=== PATIENT | male | born 1950 | race Caucasian/White ===

== ENCOUNTER 2018-01-01 11:33 | Observation (INO) | payer MEDICARE, SELFPAY ==
[2017-12-18 14:19] VITALS: BP 132/98; PULSE 82; RESP 16; TEMP 37.1; O2SAT 96; BMI 24.0
--- NOTE | 2017-12-18 14:25 | SDCEKG_ITS ---
Test Reason : Blood Pressure : / mmHG Vent. Rate : 078 BPM Atrial Rate : 078 BPM P-R Int : 178 ms QRS Dur : 136 ms QT Int : 406 ms P-R-T Axes : 068 008 044 degrees QTc Int : 462 ms Normal sinus rhythm Possible Left atrial enlargement Right bundle branch block Abnormal ECG Confirmed by DARIAN HOBSON, DOMITILA ([id number]), editor in chief KENIA LOPEZ ([id number]) on 12/19/2017 10:24:16 AM Referred By: NILO Confirmed By:DOMITILA FARMER MD
[2017-12-18 15:07] LABS: Hematocrit 40.3 % (40-54); Hemoglobin 13.9 g/dl (13.0-16.5); Mean Corp Hgb Conc 34.5 g/gl (32-36); Mean Corpuscular Hgb 30.2 pg (27.0-32.0); Mean Corpuscular Volume 87.4 fL (80-94); Mean Platelet Vol. 9.4 fl (6.2-12.0); Platelet Count 262 K/mm3 (150-450); RBC Distribution Width CV 13.5 % (11.6-14.6); RBC Distribution Width SD 41.9 fl (35.1-43.9); Red Blood Count 4.61 M/mm3 (4.6-6.2); White Blood Count 4.2 K/mm3 (4.4-11.0)
[2017-12-18 15:08] LABS: Scan Indicated on CBC? Y/N NO
[2017-12-18 15:22] LABS: Anion Gap 9 (5-15); BUN 20 mg/dL (7-18); BUN/Creat Ratio 17.5 RATIO (10-20); Calcium,Total 8.7 mg/dL (8.5-10.1); Chloride 107 mmol/L (98-107); Creatinine, Serum 1.14 mg/dL (0.70-1.30); EST Glomerular Filtration Rate 68 mL/min (>60); Est Glom Filt Rate - Afr Amer 82 mL/min (>60); Estimated Creatinine Clearance 64.04 ml/min; Glucose 108 mg/dL (70-110); Potassium 4.1 mmol/L (3.5-5.1); Sodium Level 141 mmol/L (136-145)
--- NOTE | 2017-12-27 10:22 | CASEMGMT ---
Social Work Note Placed call to pt to discuss discharge planning. Introduced self and role at [facility]. The pt reports that he lives with his in a one-story home with two steps for entry and no HR. DME consists of a walker and cane, and pt does not anticipate additional DME needs. Plans to [facility] and will have transportation to and from appointments. JOSY CM to f/u with pt post-operatively. Plan: Outpatient therapy at [facility]. ERON Hernandez
[2018-01-01] VITALS (11 sets, daily range): BP systolic 100–154; BP diastolic 71–103; PULSE 77–88; RESP 16–20; TEMP 36.2–37; O2SAT 96–100; BMI 24.0
[2018-01-01] MEDS: Acetaminophen 500 MG Tablet 1000 MG PO ×3 (09:07→22:13)
[2018-01-01] MEDS: oxyCODONE HCl Cr 10 MG Tablet PO (09:07)
[2018-01-01] MEDS: Celecoxib 200 MG Capsule 400 MG PO (09:08)
[2018-01-01] MEDS: Cefazolin 2 GM in 0.9% Normal Saline 100 ML IV (10:19)
--- NOTE | 2018-01-01 11:37 | PCM.OPRPT ---
Report of Operation Date of Procedure: 01/01/18 Pre-Operative Diagnosis: Severe end-stage osteoarthritis left knee Post-Operative Diagnosis: Severe end-stage osteoarthritis left knee Surgery/Procedure Performed:: Total knee arthroplasty left Description of Surgical Findings:: Eburnation of bone, varus alignment, periarticular osteophytes consistent with tricompartmental osteoarthritis sheet rock layer: Manfred Dyer Type of Anesthesia:: Spinal Anesthesiologist: Jagjit Perry Special Medications: txa Specimen's removed: Bone and soft tissue Estimated Blood Loss (mL): 100 Fluids Replaced: See anesthesia report Description of Procedure: Implants: Nancie triathlon size 6 CR femur, 6 tibia, 35 x 9 mm patella all cemented with Simplex. 9 mm cruciate retaining articular surface Indications: Patient has severe end-stage osteoarthritis diagnosed via x-rays in the knee. They have failed all forms of conservative measures including activity modification, injections, anti-inflammatories, use of assistive device. The patient has pain that affects on a daily basis and prevents him from doing things that they enjoyed. They have elected to undergo the above procedure. The risks of the procedure were discussed at length and their questions were answered. Procedure description: The patient was greeted in the preoperative area. The left knee was then marked with a surgical marker. Patient was then taken to or [address]. They were administered a dose of antibiotics as well as tranexamic acid. Once adequate anesthesia was obtained and airway was secured to placed in supine position on the operating room table. A well-padded tourniquet was placed on the affected extremity. Leg was then prepped and draped in the usual sterile fashion from the knee down. Ioban was used on the skin. Surgical timeout was then performed and confirmed with all present. Six-inch Esmarch was used to examine the limb and tourniquet was then inflated to 250 mmHg. A longitudinal incision was then planned and carried out in the anterior aspect of the knee. The dissection was then carried the length of the incision the extensor mechanism was identified. Standard medial parapatellar arthrotomy was then performed revealing severe eburnation of bone and periarticular osteophytes. There is complete loss of cartilage especially in the medial compartment with varus alignment. Anterior fat pad was removed for visualization purposes and the anterior medial aspect of the tibia was skeletonized for exposure to the knee. The knee was then flexed the patella was inverted. Opening reamer was then used in the femur approximately 1 cm anterior to the attachment of the PCL. The intramedullary valgus wand was then placed in the femur set at 5? of valgus. The distal femoral cutting jig was then applied to the femur with anticipated resection of approximately 8 mm. This was then made with a oscillating saw. The sizing guide was then placed referencing off the posterior condyles and also reference off the epicondylar axis. This was measured and the appropriate size 4-in-1 cutting jig was then applied to the distal femur. Anterior posterior cuts were made followed by the anterior and posterior chamfer cuts. These bony pieces and fragments were removed and placed on the back table. Posterior retractor was then utilized and the tibia was subluxed anteriorly. Extramedullary tibial alignment jig was then applied to the tibia referencing off the medial one third of the tibial tubercle the anterior tibial spine the middle aspect of the tibiotalar joint. Also reference off patient's kob[place] slope. The tibial cutting jig was then pinned with anticipated resection of 2 mm off of the deficient medial tibial condyle. This cut was made with the oscillating saw. Once this was complete a laminar carton marker machine was utilized in both medial lateral meniscus were removed and a posterior capsular osteophytes were also removed. Posterior capsule release was performed in the posterior capsule as well as the geniculate arteries are treated with the aqua Jerica. The tibia was incised and the appropriate sized tibial tray was then pinned. The femoral trial was then placed and the knee was trialed. Full flexion-extension were easily achieved. The knee seemed to balance quite nicely. Any remaining osteophytes were removed at this time. Once this was complete the patella was everted and the Robert patella reaming device was then utilized the patella was then placed in the appropriate jig and reamer was then used to remove approximately 9 mm of the undersurface of the patella. A soft tissue remaining was in the way was removed and patella trial was then placed listed maintain excellent tracking using the no thumbs technique. The tibial tray at this point was punched to accommodate the fins of the final implant. At this point cement was mixed on the back table. The trial components were removed and the knee was copiously irrigated. Did use a cocktail of injection for postoperative pain control. The final components were then cemented in the standard fashion and excess cement was removed with cement removal tools and patellar clamp is placed in the patella. As the cement had cured in full extension tourniquet was deflated and hemostasis was perfect with Bovie cautery as well as the aqua Manus. Needle is once again trialed with different size polyethylenes to ensure the full range of motion was achieved as well as excellent balancing ligamentously was achieved. At this point the knee was copiously irrigated. Final implant was then inserted locking mechanism was engaged and confirmed to be locked. The arthrotomy was then closed with #1 Vicryl aggravate type fashion interrupted. Subcutaneous tissue was closed with 0 Vicryl and surgical zahida were placed in the skin. A occlusive silver impregnated dressing was then applied followed by well-padded sterile dressing secured with an Nilton wrap. The patient was taken to the PACU in stable condition. No complications known at this time. Postoperatively we will maintain standard total knee postoperative protocol. The use of the physician insurance account assistant was integral during this procedure. They assisted with positioning placement of the tourniquet retracting closure and placement of the dressing. The procedure would have been much more difficult without their expertise and assistance - Admit VTE Documentation VTE Present on Admission: Yes VTE Mechan Device Prophylaxis: SCD's, Thigh High ZAHIDA Hose VTE Pharm Prophylaxis ordered?: Yes
[2018-01-01] MEDS: Lactated Ringers 1,000 ML 125 ML IV (15:29)
[2018-01-01] MEDS: Cefazolin 1 GM/50 ML BAG IV (18:06)
[2018-01-01] MEDS: Aspirin 325 MG Tablet PO (18:06)
[2018-01-01] MEDS: Senna/Docusate Sodium 1 Tablet 2 TABLET PO (22:13)
[2018-01-01] MEDS: Lisinopril 10 MG Tablet PO (22:13)
[2018-01-02 02:27] VITALS: BP 127/79; PULSE 76; RESP 14; TEMP 36.6; O2SAT 100
[2018-01-02] MEDS: Cefazolin 1 GM/50 ML BAG IV (02:39)
[2018-01-02] MEDS: Acetaminophen 500 MG Tablet 1000 MG PO ×3 (05:34→22:02)
--- NOTE | 2018-01-02 07:45 | PCM.PN.ORT ---
Subjective: Patient sitting at bedside. Patient states pain is well-managed. Patient denies chest pain, shortness breath, calf pain, nausea vomiting. Has no other complaints. Objective: Dressing is clean dry intact. Vital signs labs within normal limits. Patient is neurovascular intact afebrile. Negative signs and symptoms of DVT. Negative respiratory distress. - Physical Exam General: Alert, Oriented x3 HEENT: PERRLA Oral: Moist Mucosa Neurological: Cranial nerves II-XII grossly intact Psych/Mental Status: Normal Affect, Alert and oriented to time, place, person, mood and affect Vital Signs Temp Pulse Resp BP Pulse Ox 97.8 F 76 14 127/79 H 100 01/02/18 02:27 01/02/18 02:27 01/02/18 02:27 01/02/18 02:27 01/02/18 02:27 Oxygen Delivery Method Room Air Weight: 76.2 kg Body Mass Index (BMI) 24.0 Intake and Output for Last 24 Hours 12/31/17 01/01/18 01/02/18 23:59 23:59 23:59 Intake Total 800 / 800 1259 / 1259 Balance 800 / 800 1259 / 1259 Assessment/Plan Status post right total knee arthroplasty 1. Continue all pain medications as prescribed 2. Begin physical therapy today, weight-bear as tolerated with walker. 3. Aspirin 325 mg 1 p.o. every 12 hours ?30 days for DVT prophylaxis 4. Encourage incentive spirometry 5. Possible discharge home tomorrow
--- NOTE | 2018-01-02 09:04 | PCA ---
pt in therapy
[2018-01-02] MEDS: Famotidine 20 MG Tablet PO (09:11)
[2018-01-02] MEDS: Senna/Docusate Sodium 1 Tablet 2 TABLET PO ×2 (09:11→22:02)
[2018-01-02] MEDS: Aspirin 325 MG Tablet PO ×2 (09:11→16:35)
[2018-01-02] MEDS: Lisinopril 20 MG Tablet PO (09:13)
[2018-01-02 09:21] VITALS: BP 122/84; PULSE 97; RESP 16; TEMP 36.5; O2SAT 97
[2018-01-02 11:12] VITALS: BP 127/92; PULSE 91; RESP 16; TEMP 36.9; O2SAT 100
[2018-01-02] MEDS: oxyCODONE 5 MG Tablet PO ×3 (12:05→23:58)
--- NOTE | 2018-01-02 14:02 | CASEMGMT ---
JOSY CABALLERO Face to Face with patient for initial transition planning/care coordination assessment. RN FEDERICO introduced self and role at [facility]. Patient sitting in chair, alert and oriented, friend at bedside. Patient willing to participate in assessment and is able to answer all questions appropriately. Care providers, pharmacy, and demographics verified. See link attached. Patient wishes to discharge home and has outpatient therapy set up at [facility] and family to provide transportation. Patient states he has no further needs or concerns at this time. CM to follow for discharge planning needs that may arise. Disposition Plan: Patient to discharge home with outpatient therapy, family support, and follow-up plans in place.
[2018-01-02 14:24] VITALS: BP 138/90; PULSE 95; RESP 16; TEMP 36.7; O2SAT 100
--- NOTE | 2018-01-02 15:05 | CASEMGMT ---
Medicare Outpatient Observation Notice completed with patient at this time. Patient voiced understanding and has no questions at this time. RN FEDERICO provided copy of signed notice to patient and filed original on chart. JOSY CABALLERO also provided Medicare Inpatient vs Outpatient information packet.
[2018-01-02 20:12] VITALS: BP 142/94; PULSE 102; RESP 16; TEMP 37.4; O2SAT 100
[2018-01-02] MEDS: Lisinopril 10 MG Tablet PO (22:02)
[2018-01-03 03:06] VITALS: BP 151/99; PULSE 99; RESP 16; TEMP 37.2; O2SAT 98
[2018-01-03] MEDS: 0.9% NaCl Peripheral Flush Adult/Peds IV ×2 (03:13→08:45)
[2018-01-03] MEDS: Acetaminophen 500 MG Tablet 1000 MG PO ×2 (06:18→13:55)
[2018-01-03] MEDS: oxyCODONE 5 MG Tablet PO ×2 (06:19→14:26)
[2018-01-03 08:32] VITALS: BP 107/76; PULSE 100; RESP 16; TEMP 36.9; O2SAT 98
[2018-01-03] MEDS: Senna/Docusate Sodium 1 Tablet 2 TABLET PO (08:52)
[2018-01-03] MEDS: Aspirin 325 MG Tablet PO ×2 (08:52→17:05)
[2018-01-03] MEDS: Famotidine 20 MG Tablet PO (08:52)
--- NOTE | 2018-01-03 12:05 | NURSING ---
Patient is requesting to hold MS contin until lunch- same completed.
--- NOTE | 2018-01-03 12:37 | PCM.PN.ORT ---
Subjective: Patient walking in his room, states pain is well-managed. No other complaints. Ready for discharge home Objective: Dressings clean dry intact. Vital signs labs all within normal limits. Patient is afebrile, neurovascular is otherwise intact. Negative signs and symptoms of DVT - Physical Exam General: Alert, Oriented x3, Cooperative HEENT: PERRLA Oral: Moist Mucosa Neurological: Cranial nerves II-XII grossly intact Psych/Mental Status: Normal Affect, Alert and oriented to time, place, person, mood and affect Vital Signs Temp Pulse Resp BP Pulse Ox 98.4 F 100 16 107/76 98 01/03/18 08:32 01/03/18 08:32 01/03/18 08:32 01/03/18 08:32 01/03/18 08:32 Oxygen Delivery Method Room Air Weight: 76.2 kg Body Mass Index (BMI) 24.0 Intake and Output for Last 24 Hours 01/01/18 01/02/18 01/03/18 23:59 23:59 23:59 Intake Total 800 / 800 1659 / 1659 1533 / 1533 Balance 800 / 800 1659 / 1659 1533 / 1533 Assessment/Plan Status post right total knee arthroplasty 1. Continue all pain medications as prescribed 2. Continue physical therapy at [facility], weight-bear as tolerated with walker. 3. Aspirin 325 mg 1 p.o. every 12 hours ?30 days for DVT prophylaxis 4. Follow-up as scheduled, see pink sheet 5. Discharge home today
--- NOTE | 2018-01-03 12:40 | PN.ORTHO_ITS ---
Subjective: Patient walking in his room, states pain is well-managed. No other complaints. Ready for discharge home Objective: Dressings clean dry intact. Vital signs labs all within normal limits. Patient is afebrile, neurovascular is otherwise intact. Negative signs and symptoms of DVT - Physical Exam General: Alert, Oriented x3, Cooperative HEENT: PERRLA Oral: Moist Mucosa Neurological: Cranial nerves II-XII grossly intact Psych/Mental Status: Normal Affect, Alert and oriented to time, place, person, mood and affect Vital Signs Temp Pulse Resp BP Pulse Ox 98.4 F 100 16 107/76 98 01/03/18 08:32 01/03/18 08:32 01/03/18 08:32 01/03/18 08:32 01/03/18 08:32 Oxygen Delivery Method Room Air Weight: 76.2 kg Body Mass Index (BMI) 24.0 Intake and Output for Last 24 Hours 01/01/18 01/02/18 01/03/18 23:59 23:59 23:59 Intake Total 800 / 800 1659 / 1659 1533 / 1533 Balance 800 / 800 1659 / 1659 1533 / 1533 Assessment/Plan Status post right total knee arthroplasty 1. Continue all pain medications as prescribed 2. Continue physical therapy at [facility], weight -bear as tolerated with walker. 3. Aspirin 325 mg 1 p.o. every 12 hours ?30 days for DVT prophylaxis 4. Follow-up as scheduled, see pink sheet 5. Discharge home today
[2018-01-03 12:48] VITALS: BP 135/95; PULSE 96; RESP 18; TEMP 36.8; O2SAT 100
--- NOTE | 2018-01-03 12:48 | DCINST_ITS ---
Discharge Diet: No Restrictions Discharge Activity: May Not Drive May shower in (days): 1 Ice area for (Minutes): 20 - each hour while awake. Weight Bearing Status: Weight bearing as tolerated Elevate: Operative Extremity Additional Activity Instructions:: Wear elastic stockings for 2 weeks after your surgery. Call your doctor if your incision/area has: Continuous Slow Oozing, Sudden Increased Bleeding, Increased Pain/ Swelling, Increased Redness, Foul Smelling Discharge Call your doctor if you observe: Fever of 101 or Higher, Coldness, Increased Pain - in extremity, Numbness or Tingling, Change in Color, Calf discomfort, Uncontrolled pain Change Dressing in (Days):: 0 - and daily as needed. Remove Dressing in (days):: 7 Cleanse incision/area with: Soap & Water Allergies/Adverse Reactions: Allergies No Known Allergies Allergy (Verified 12/18/17 14:00) Medications to take at Discharge Acyclovir [Zovirax] 200 mg PO YU 12/18/17 Calcium Carbonate [Calcium] 600 mg PO DAILY 12/18/17 Cholecalciferol (Vitamin D3) [Vitamin D3] 2,000 unit PO DAILY 12/18/17 Flaxseed Oil [[place]-3 Flaxseed Oil] 1,200 mg PO BID 12/18/17 Lisinopril [Prinivil] 20 mg PO DAILY 12/18/17 Lisinopril [Zestril] 10 mg PO QHS 12/18/17 Multivitamin [Multiple Vitamins] 1 each PO DAILY 12/18/17 Acetaminophen [Tylenol] 1,000 mg PO Q8 #90 tab 01/03/18 Aspirin 325 mg PO BIDCM #60 tab 01/03/18 MorphINE [Ms Contin] 15 mg PO BID 7 Days #14 tab 01/03/18 Oxycodone [Oxyir] 5 - 10 mg PO Q6H PRN PRN 7 Days #45 tab 01/03/18 The following prescriptions were given: Oxycodone [Oxyir] 5 - 10 mg PO Q6H PRN PRN 7 Days #45 tab PRN Reason: Mod-Severe Pain (4-10/10) Acetaminophen [Tylenol] 1,000 mg PO Q8 #90 tab Aspirin 325 mg PO BIDCM #60 tab MorphINE [Ms Contin] 15 mg PO BID 7 Days #14 tab Primary Care Physician: Ba Sarah MD [Primary Care Provider] - Please Follow Up With: Héctor Clemons, DO When: see pink sheet
--- NOTE | 2018-01-03 14:19 | NURSING ---
patient requesting for stool softner to be added to his prescriptions. Notified Khadar Hurst of [facility]. He states that it is ok to order colace for patient. This RN called [facility] pharmacy and notified them of same. Notified that stool softners are not typically covered by insurance and that they would bring up for patient to purchase OTC if he decided to. This RN relayed information to patient and his .
[2018-01-03] MEDS: Lisinopril 10 MG Tablet PO (17:04)
--- NOTE | 2018-01-03 18:24 | NURSING ---
Patient was to be discharged after lunch today. However, paper prescriptions were printed off and with patient's discharge instructions. Patient's upset that she was told that they would be automatically sent to pharmacy. Notified her that we would send prescriptions down for them- same completed. Uncertain about exact sequence of events after that time- but this RN was notified via JOSY Gonzáles that pharmacy called up and notified her that the MS contin needs to have prior authorization and that they did not have enough oxycontin to fill the entire prescription order. Notified that pharmacy was in contact with Gillian Barron. An hour or so later, no new information was given and this RN decided to call pharmacy to check on prescriptions. Notified by Adilene that prior autho. is still needed for prescriptions but that was told they could pay $13.88 now and then be reimbursed when prior authorization went through, which could be a day or so. Also, notified that was notified that entire prescription could not be filled of oxycodone and that only 15 pills could be given today and pharmacy would owe them 45. At the the time this RN was on phone with pharmacy, was furious and out at nurses' station and a phone call came in for this RN from Dr. Clemons's office. Nevaeh from Dr. Clemons's office states that the patient used his 's phone and called in to their office and was very nasty. She states that they are upset about the long wait to be discharged due to lack of planning with prior auth. and prescriptions being sent to pharmacy late. This RN notified Nevaeh that this RN was on the phone with [facility] pharmacy and that issues will be resolved. This RN went into patient's room and notified him that they could have MS contin if they paid the $13.88 and that if they did not want to do that then it could be a day or so for it go be completed. Also, notified that they could get 15 pills of the oxycontin order and then come back to pharmacy in next 2 days to have rest filled. Gave them the option to retrieve paper prescriptions and to go to different pharmacy. Patient realized that if they leave [place] they would still be dealing with the issue of prior authorization and decided to wait. Patient requested free tray for his - same completed. This RN called pharmacy and notified them of the same, understanding verified by Adilene in pharmacy. Prescription meds were brought up however, prescription for tylenol was not included with meds. Pharmacist ran downstairs and retrieved same. patient and his received meals and then were assisted with discharge.
== END 2018-01-03 18:58 | disposition home or self-care (01) ==
LOC: SDC 01-02 10:36
PROVIDERS: Admitting Provider Orthopaedic Surgery; Family Provider Family Medicine; PCP Family Medicine; Visit Provider Orthopaedic Surgery
PROC: (CPT 27447; principal; 2018-01-01 09:50)
DX: M17.12 Unilateral primary osteoarthritis, left knee (principal); Z79.899 Other long term (current) drug therapy; Z79.82 Long term (current) use of aspirin; I10 Essential (primary) hypertension; Z87.891 Personal history of nicotine dependence; I45.10 Unspecified right bundle-branch block; Z85.828 Personal history of other malignant neoplasm of skin
CPT/HCPCS: 01400; 27447; 64447; 80048; 85027; 87081; 93005; 96361; 96365; 96366; 96375; 97110; 97116; 97162; 97166; 97530; 97535; 99218; J7120; A4216; G0378; G0379; J2405

== ENCOUNTER 2019-01-25 10:00 | Day surgery (SDC) | payer MEDICARE, SELFPAY ==
[2019-01-17 14:27] VITALS: BMI 23.3
[2019-01-25] VITALS (7 sets, daily range): BP systolic 90–145; BP diastolic 65–93; PULSE 68–97; RESP 16–18; TEMP 36.4–36.6; O2SAT 95–100; BMI 23.4
--- NOTE | 2019-01-25 11:02 | OP.ENDO_ITS ---
01/25/2019 Ba Sarah Re : Colonoscopy procedure for Julian Sarah This procedure was performed on Friday, January 25, 2019. My impressions and recommendations are as follows: Impressions : - Diverticulosis in the sigmoid colon and in the descending colon. - Non-bleeding internal hemorrhoids. - The examination was otherwise normal on direct and retroflexion views. - No specimens collected. Recommendations : - Discharge patient to home. - Resume previous diet. - Continue present medications. - Repeat colonoscopy in 10 years for screening purposes. My findings are described in the full procedure note, which is enclosed. If I can be of further assistance, please feel free to contact me at Doctor phone number(s): , Work: . Sincerely, Marcelino Joshua MD 01/25/2019 11:02:02 AM This report has been signed electronically.
== END 2019-01-25 11:58 | disposition home or self-care (01) ==
LOC: EN 10:00 → AC 10:02
PROVIDERS: Family Provider Family Medicine; PCP Family Medicine; Referring Provider Surgery; Visit Provider Surgery
PROC: 0DJD8ZZ Inspection of Lower Intestinal Tract, Via Natural or Artificial Opening Endoscopic (ICD-10-PCS; CPT 45378; principal; 2019-01-25 10:55)
DX: K57.30 Diverticulosis of large intestine without perforation or abscess without bleeding (principal); K64.0 First degree hemorrhoids; I10 Essential (primary) hypertension; M19.90 Unspecified osteoarthritis, unspecified site; Z86.010 Personal history of colon polyps; Z87.891 Personal history of nicotine dependence; Z85.828 Personal history of other malignant neoplasm of skin; Z79.82 Long term (current) use of aspirin; Z79.899 Other long term (current) drug therapy
CPT/HCPCS: 45378; J7120

== ENCOUNTER 2019-04-04 05:51 | Day surgery (SDC) | payer MEDICARE, SELFPAY ==
[2019-01-25 10:14] VITALS: BMI 23.4
--- NOTE | 2019-04-04 06:06 | EKG12_ITS ---
Test Reason : PRE SURGERY Blood Pressure : / mmHG Vent. Rate : 072 BPM Atrial Rate : 072 BPM P-R Int : 186 ms QRS Dur : 140 ms QT Int : 420 ms P-R-T Axes : 072 002 033 degrees QTc Int : 459 ms Normal sinus rhythm Right bundle branch block Abnormal ECG When compared with ECG of 18-DEC-2017 14:29, No significant change was found Confirmed by SHARON CANADA ([id number]), editor city KENIA LOPEZ ([id number]) on 04/08/2019 4:56:04 PM Referred By: Marcelino Joshua Confirmed By:NEFTALI CANADA
[2019-04-04 06:16] VITALS: BP 148/99; PULSE 76; RESP 16; TEMP 36.8; O2SAT 99; BMI 23.3
--- NOTE | 2019-04-04 07:07 | PCM.HP.STD ---
Problem List (1) Left inguinal hernia Status: Acute History of Present Illness Date of Admission: 04/04/19 The patient is a 68 year old M here today for left inguinal hernia repair. Patient had a history of right anal hernia repair in the past. He has been experiencing pain in the left groin as well as bulging. 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 Past Medical History Medical History: Medical History (Last Reviewed 01/17/19 @ 14:27 by Sallie King) Arthritis M19.90 Hypertension I10 Allergies No Known Allergies Allergy (Verified 03/27/19 14:37) Home Medications: Ambulatory Orders Medication Instructions Recorded Cholecalciferol (Vitamin D3) 2,000 unit PO DAILY 12/18/17 [Vitamin D3] Flaxseed Oil [[place]-3 Flaxseed Oil] 1,200 mg PO BID 12/18/17 Lisinopril [Zestril] 10 mg PO QHS 12/18/17 Multivitamin [Multiple Vitamins] 1 ea PO DAILY 12/18/17 aspirin 325 mg tablet 81 mg PO QDAY tab 05/02/18 lisinopril 10 mg tablet 20 mg PO DAILY 05/02/18 Vitamin E 2,000 unit PO DAILY 01/22/19 Acyclovir [Zovirax] 200 mg PO 5X/DAY 03/27/19 Surgical History: Surgical History (Last Reviewed 01/17/19 @ 14:27 by Sallie King) History of arthroscopy of both knees Z98.890 History of hernia repair Z98.890, Z87.19 History of left knee surgery Z98.890 History of tonsillectomy Z90.89 Smoking Status: Former smoker Review of Systems Constitutional: Denies: Anorexia, Fever Eyes: Denies: Blurred vision HEENT: Denies: Difficulty Hearing, Difficulty Swallowing Respiratory: Denies: Cough, Shortness of Breath Gastrointestinal: Reports: Abdominal Pain. Denies: Diarrhea, Hematemesis, Nausea, Vomiting Genitourinary: Denies: Dysuria Musculoskeletal: Denies: Joint Tenderness Skin: Denies: Dryness, Jaundice Hematologic/ Lymphatic: Denies: Anemia VTE Information - Inpt Only VTE Present on Admission: No VTE Mechan Device Prophylaxis: SCD's Patient Problems: Active and Suspected Problems (Last Reviewed 01/17/19 @ 14:27 by Sallie King) Left inguinal hernia (Acute) - Physical Exam General: Alert, Oriented x3 HEENT: Atraumatic, PERRLA Neck: No JVD Lungs: Normal air movement Cardiovascular: Regular rate, Regular Rhythm Abdomen: Soft, Non Tender, Non-Distended, - - Bulging in the right groin Extremities: No clubbing Skin: No rashes Musculoskeletal: No Muscle Wasting Lymphatic: No Cervical, Supraclavicular, or Inguinal Adenopathy Neurological: Cranial nerves II-XII grossly intact Psych/Mental Status: Normal Affect Vital Signs Temp Pulse Resp BP Pulse Ox 98.2 F 76 16 148/99 H 99 04/04/19 06:16 04/04/19 06:16 04/04/19 06:16 04/04/19 06:16 04/04/19 06:16 Oxygen Delivery Method Room Air Weight: 162 lb 7.691 oz Body Mass Index (BMI) 23.3 Assessment/Plan All Active Problems (Last Reviewed 01/17/19 @ 14:27 by Sallie King) Left inguinal hernia (Acute) 68-year-old male left inguinal hernia 1. Patient has an obvious left inguinal hernia with bulging which is easily reducible. Patient also has laxity of the right inguinal ring which she had repaired as a child. I explained left inguinal hernia repair with robotic assistance to the patient in detail. I explained the risks including but not limited to bleeding, infection, chronic groin pain, recurrence of hernia, spermatic cord injury. The patient agrees to the risks. I also offered the patient right inguinal hernia repair if there is a right inguinal hernia present and the patient would like this fixed if present. Marcelino Joshua MD Pager: [facility] [address] [place] [address], [address] [place] [address] Office:
--- NOTE | 2019-04-04 07:10 | HP.PCM_ITS ---
Problem List (1) Left inguinal hernia Status: Acute History of Present Illness Date of Admission: 04/04/19 The patient is a 68 year old M here today for left inguinal hernia repair. Patient had a history of right anal hernia repair in the past. He has been experiencing pain in the left groin as well as bulging. 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 Past Medical History Medical History: Medical History (Last Reviewed 01/17/19 @ 14:27 by Sallie King) Arthritis M19.90 Hypertension I10 Allergies No Known Allergies Allergy (Verified 03/27/19 14:37) Home Medications: Ambulatory Orders Medication Instructions Recorded Cholecalciferol (Vitamin D3) 2,000 unit PO DAILY 12/18/17 [Vitamin D3] Flaxseed Oil [[place]-3 Flaxseed Oil] 1,200 mg PO BID 12/18/17 Lisinopril [Zestril] 10 mg PO QHS 12/18/17 Multivitamin [Multiple Vitamins] 1 ea PO DAILY 12/18/17 aspirin 325 mg tablet 81 mg PO QDAY tab 05/02/18 lisinopril 10 mg tablet 20 mg PO DAILY 05/02/18 Vitamin E 2,000 unit PO DAILY 01/22/19 Acyclovir [Zovirax] 200 mg PO 5X/DAY 03/27/19 Surgical History: Surgical History (Last Reviewed 01/17/19 @ 14:27 by Sallie King) History of arthroscopy of both knees Z98.890 History of hernia repair Z98.890, Z87.19 History of left knee surgery Z98.890 History of tonsillectomy Z90.89 Smoking Status: Former smoker Review of Systems Constitutional: Denies: Anorexia, Fever Eyes: Denies: Blurred vision HEENT: Denies: Difficulty Hearing, Difficulty Swallowing Respiratory: Denies: Cough, Shortness of Breath Gastrointestinal: Reports: Abdominal Pain. Denies: Diarrhea, Hematemesis, Nausea, Vomiting Genitourinary: Denies: Dysuria Musculoskeletal: Denies: Joint Tenderness Skin: Denies: Dryness, Jaundice Hematologic/ Lymphatic: Denies: Anemia VTE Information - Inpt Only VTE Present on Admission: No VTE Mechan Device Prophylaxis: SCD's Patient Problems: Active and Suspected Problems (Last Reviewed 01/17/19 @ 14:27 by Sallie King) Left inguinal hernia (Acute) - Physical Exam General: Alert, Oriented x3 HEENT: Atraumatic, PERRLA Neck: No JVD Lungs: Normal air movement Cardiovascular: Regular rate, Regular Rhythm Abdomen: Soft, Non Tender, Non-Distended, - - Bulging in the right groin Extremities: No clubbing Skin: No rashes Musculoskeletal: No Muscle Wasting Lymphatic: No Cervical, Supraclavicular, or Inguinal Adenopathy Neurological: Cranial nerves II-XII grossly intact Psych/Mental Status: Normal Affect Vital Signs Temp Pulse Resp BP Pulse Ox 98.2 F 76 16 148/99 H 99 04/04/19 06:16 04/04/19 06:16 04/04/19 06:16 04/04/19 06:16 04/04/19 06:16 Oxygen Delivery Method Room Air Weight: 162 lb 7.691 oz Body Mass Index (BMI) 23.3 Assessment/Plan All Active Problems (Last Reviewed 01/17/19 @ 14:27 by Sallie King) Left inguinal hernia (Acute) 68-year-old male left inguinal hernia 1. Patient has an obvious left inguinal hernia with bulging which is easily reducible. Patient also has laxity of the right inguinal ring which she had repaired as a child. I explained left inguinal hernia repair with robotic assistance to the patient in detail. I explained the risks including but not limited to bleeding, infection, chronic groin pain, recurrence of hernia, spermatic cord injury. The patient agrees to the risks. I also offered the patient right inguinal hernia repair if there is a right inguinal hernia present and the patient would like this fixed if present. Marcelino Joshua MD Pager: [facility] [address] [place] [address], [address] [place] [address] Office:
[2019-04-04] MEDS: Bupivacaine Mpf 0.5% 30 ML VIAL (07:16)
[2019-04-04] MEDS: Cefazolin 2 GM in 0.9% Normal Saline 100 ML IV (07:29)
[2019-04-04 08:44] VITALS: BP 118/81; BP 148/99; PULSE 68; RESP 14; TEMP 36.4; O2SAT 97
[2019-04-04 08:45] VITALS: BP 111/71; BP 148/99; PULSE 68; RESP 16; O2SAT 100
[2019-04-04 09:00] VITALS: BP 105/76; BP 148/99; PULSE 60; RESP 16; O2SAT 100
--- NOTE | 2019-04-04 09:08 | PCM.OPRPT ---
Problem List (1) Left inguinal hernia Status: Acute Report of Operation Date of Procedure: 04/04/19 Pre-Operative Diagnosis: Left inguinal hernia Post-Operative Diagnosis: Left inguinal hernia Surgery/Procedure Performed:: Robotic assisted laparoscopic left inguinal hernia repair with mesh Description of Procedure: Patient was brought back to the operating room and general anesthesia was induced. Abdomen was prepped and draped in the usual sterile fashion. An incision was made superior to the umbilicus and Melanie clamps were used to elevate the fascia and a Veress needle was placed into the abdomen and a drop test was performed. The abdomen was then insufflated to 15 mmHg. Next the camera port was placed through this incision and the camera was placed into the abdomen and there were no injuries from entry. Under direct visualization a right lower quadrant and left lower quadrant port were placed. Next the patient was placed in steep Trendelenburg and the robot was docked. Next an incision was made in the peritoneum superior to the hernia this was dissected down to the hernia sac was reached. The hernia sac was reduced into the abdomen and its adhesions were lysed. Once the hernia sac was reduced the dissection was carried further posterior. Once the dissection was completed a pro-supervisor production mesh was trimmed and placed into the left groin and unfolded. Next the peritoneum was reapproximated using a running 3-0V lock suture. There was good coverage of the mesh. Next the robot was undocked and removed and the air was allowed to desufflate from the abdomen in the scrotum. The skin incisions were then anesthetized and closed with interrupted 4-0 Monocryl's as well as bandages and Steri-Strips. Patient tolerated the procedure well was brought back in stable condition. Grafts/Implants Used: Pro-supervisor production mesh - Admit VTE Documentation VTE Present on Admission: No VTE Mechan Device Prophylaxis: SCD's
--- NOTE | 2019-04-04 09:11 | OP.PCM_ITS ---
Problem List (1) Left inguinal hernia Status: Acute Report of Operation Date of Procedure: 04/04/19 Pre-Operative Diagnosis: Left inguinal hernia Post-Operative Diagnosis: Left inguinal hernia Surgery/Procedure Performed:: Robotic assisted laparoscopic left inguinal hernia repair with mesh Description of Procedure: Patient was brought back to the operating room and general anesthesia was induced. Abdomen was prepped and draped in the usual sterile fashion. An incision was made superior to the umbilicus and Melanie clamps were used to elevate the fascia and a Veress needle was placed into the abdomen and a drop test was performed. The abdomen was then insufflated to 15 mmHg. Next the camera port was placed through this incision and the camera was placed into the abdomen and there were no injuries from entry. Under direct visualization a right lower quadrant and left lower quadrant port were placed. Next the patient was placed in steep Trendelenburg and the robot was docked. Next an incision was made in the peritoneum superior to the hernia this was dissected down to the hernia sac was reached. The hernia sac was reduced into the abdomen and its adhesions were lysed. Once the hernia sac was reduced the dissection was carried further posterior. Once the dissection was completed a pro-service tech/welder mesh was trimmed and placed into the left groin and unfolded. Next the peritoneum was reapproximated using a running 3-0V lock suture. There was good coverage of the mesh. Next the robot was undocked and removed and the air was allowed to desufflate from the abdomen in the scrotum. The skin incisions were then anesthetized and closed with interrupted 4-0 Monocryl's as well as bandages and Steri-Strips. Patient tolerated the procedure well was brought back in stable condition. Grafts/Implants Used: Pro-service tech/welder mesh - Admit VTE Documentation VTE Present on Admission: No VTE Mechan Device Prophylaxis: SCD's
--- NOTE | 2019-04-04 09:12 | DCINST_ITS ---
Discharge Diet: Light diet - advance as tolerated Discharge Activity: Return to Normal Activity, May Not Drive - for 2-3 days or while taking narcotic pain meds., May Shower - with the bandage in place 1-2 days after surgery. Lifting Restrictions: 20 pounds for 4 weeks. Additional Activity Instructions:: Climbing stairs is fine, walking is encouraged. Sitting in bed may be uncomfortable. Sitting up using your lateral muscles (sitting up sideways) is usually more comfortable. Do not drive, work heavy equipment of sign legal documents for 24 hours. If your hernia repair was an ingunial repair, you may have scrotal swelling, an ice pack and/or athletic support can provide more comfort. Pain medications may cause nausea, you should typically eat light foods as you take your pain medications. Pain medications may also cause constipation. If you have difficulty with this, discuss with your doctor. Call your doctor if your incision/area has: Continuous Slow Oozing, Sudden Increased Bleeding, Increased Pain/ Swelling, Increased Redness, Foul Smelling Discharge Call your doctor if you observe: Fever of 101 or Higher Suture Line Care: Avoid Pulling/Pushing, Avoid Pinching/Bending Change Dressing in (Days):: 3 - Leave steri-strips for 1 week. May protect with a guaze bandaid. Cleanse incision/area with: Soap & Water Allergies/Adverse Reactions: Allergies No Known Allergies Allergy (Verified 03/27/19 14:37) Medications to take at Discharge Cholecalciferol (Vitamin D3) [Vitamin D3] 2,000 unit PO DAILY 12/18/17 Flaxseed Oil [[place]-3 Flaxseed Oil] 1,200 mg PO BID 12/18/17 Lisinopril [Zestril] 10 mg PO QHS 12/18/17 Multivitamin [Multiple Vitamins] 1 ea PO DAILY 12/18/17 aspirin 325 mg tablet 81 mg PO QDAY tab 05/02/18 lisinopril 10 mg tablet 20 mg PO DAILY 05/02/18 Vitamin E 2,000 unit PO DAILY 01/22/19 Acyclovir [Zovirax] 200 mg PO 5X/DAY 03/27/19 Oxycodone HCl/Acetaminophen [Percocet 5/325] 1 - 2 tablet PO Q4H PRN PRN 7 Days #15 tablet 05/16/19 The following prescriptions were given: Oxycodone HCl/Acetaminophen [Percocet 5/325] 1 - 2 tablet PO Q4H PRN PRN 7 Days #15 tablet PRN Reason: Pain Primary Care Physician: Ba Sarah MD [Primary Care Provider] - Test Results: Test results from this visit will be discussed in further detail at your follow- up appointment, if applicable. Please Follow Up With: Marcelino Joshua MD When: Please call to schedule 2 week follow up appointment. [phone]
[2019-04-04 09:15] VITALS: BP 105/74; BP 148/99; PULSE 60; RESP 16; TEMP 36.4; O2SAT 94
[2019-04-04] MEDS: oxyCODONE 5 MG Tablet 10 MG PO (09:54)
[2019-04-04 11:54] VITALS: BP 139/92; BP 148/99; PULSE 66; RESP 16; TEMP 36.1; O2SAT 100
== END 2019-04-04 12:15 | disposition home or self-care (01) ==
LOC: SDC 05:52 → AC 05:54
PROVIDERS: Family Provider Family Medicine; PCP Family Medicine; Referring Provider Surgery; Visit Provider Surgery
PROC: 0YQ64ZZ Repair Left Inguinal Region, Percutaneous Endoscopic Approach (ICD-10-PCS; CPT 49650; principal; 2019-04-04 07:10)
DX: K40.90 Unilateral inguinal hernia, without obstruction or gangrene, not specified as recurrent (principal); I10 Essential (primary) hypertension; M19.90 Unspecified osteoarthritis, unspecified site; Z79.899 Other long term (current) drug therapy; Z87.891 Personal history of nicotine dependence; Z85.828 Personal history of other malignant neoplasm of skin
CPT/HCPCS: 49650; 93005; J7120; J2405

== ENCOUNTER → 2019-10-25 15:03 | Outpatient (CLI) | payer MEDICARE, SELFPAY ==
[2019-10-25 15:03] VITALS: BMI 22.5
--- NOTE | 2019-10-25 15:10 | RAD_ITS ---
STUDY: X-RAY - RIGHT KNEE REASON FOR EXAM: Male, 69 years old. Pain. Preop. TECHNIQUE: 4 view(s) of the knee. COMPARISON: None. FINDINGS: Normal visualized distal femur. Normal visualized proximal tibia and fibula. Normal proximal tibiofibular articulation. There is severe degenerative arthrosis of the medial femorotibial compartment with severe joint space narrowing. There is mild degenerative arthrosis of the lateral femorotibial compartment. There is moderate degenerative arthrosis of the patellofemoral articulation. There is a soft tissue prominence in the suprapatellar region suggesting a joint effusion. The soft tissue structures are unremarkable. RAD/Knee 4 or More Views IMPRESSION: Degenerative arthrosis. Joint effusion. Electronically Signed: Brooklyn Almeida MD at 16:05 EST Tel , Service support ,
== END ==
PROVIDERS: Family Provider Family Medicine; PCP Family Medicine; Referring Provider Orthopaedic Surgery; Visit Provider Orthopaedic Surgery
DX: M17.11 Unilateral primary osteoarthritis, right knee (principal)
CPT/HCPCS: 73564

== ENCOUNTER 2019-10-29 11:56 | Observation (INO) | payer MEDICARE, SELFPAY ==
[2019-09-25 09:40] VITALS: BMI 22.5
[2019-10-22 13:13] VITALS: BP 144/93; PULSE 79; RESP 16; TEMP 36.9; O2SAT 95; BMI 23.9
[2019-10-25 15:03] VITALS: BMI 22.5
--- NOTE | 2019-10-28 12:58 | PCM.HP.BLA ---
History and Physical Date of Admission: 10/29/19 Intake Vital Signs 09/25/19 Height 5 ft 10 in 09/25/19 Weight: 157 lb 09/25/19 Body Mass Index (BMI) 22.5 Intake Visit Reasons: right knee Is patient in pain?: Yes Allergies No Known Allergies Allergy (Verified 04/19/19 13:09) Medications Cholecalciferol (Vitamin D3) [Vitamin D3] 2,000 unit PO DAILY 12/18/17 [History Confirmed 09/25/19] Flaxseed Oil [[place]-3 Flaxseed Oil] 1,200 mg PO BID 12/18/17 [History Confirmed 09/25/19] Lisinopril [Zestril] 10 mg PO QHS 12/18/17 [History Confirmed 09/25/19] Multivitamin [Multiple Vitamins] 1 ea PO DAILY 12/18/17 [History Confirmed 09/25/19] aspirin 325 mg tablet 81 mg PO QDAY tab 05/02/18 [History Confirmed 09/25/19] lisinopril 10 mg tablet 20 mg PO DAILY 05/02/18 [History Confirmed 09/25/19] Vitamin E 2,000 unit PO DAILY 01/22/19 [History Confirmed 09/25/19] Acyclovir [Zovirax] 200 mg PO 5X/DAY 03/27/19 [History Confirmed 04/19/19] [facility] Medical History (Updated 04/04/19 @ 09:11 by Marcelino Joshua MD) Arthritis (Acute) Hypertension (Chronic) Surgical History (Updated 04/19/19 @ 13:09 by Ligia San) History of arthroscopy of both knees (Acute) History of hernia repair (Acute) History of left knee surgery (Acute) History of tonsillectomy (Acute) S/P inguinal hernia repair (Acute) Family History (Updated 05/02/18 @ 10:14 by Sallie King) Father Arthritis Hypertension Skin cancer Brother Arthritis Hypertension Skin cancer Mother Breast cancer Hypertension Social History (Updated 09/25/19 @ 16:32 by Guanaco Smith DO) Smoking Status: Former smoker alcohol intake: current alcohol intake frequency: a few times a month substance use type: does not use HPI right knee: Details: Parts of this documentation were recorded by a scribe, this documentation accurately reflects the service provided and the decisions made by , uGanaco Smith DO 09/25/19 0940. LETICIA MOORE is a 68 year old M here today for right knee pain that began over a year ago. 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 His pain is primarily medial, he also has non painful clicking. Patient denies regular exercise and Denies numbness, tingling or other associated symptoms. Denies any instability or swelling. Denies any steroid injections and states he was told they would not be beneficial to him. Denies any bracing. Patient states ascending stairs greater than descending. H/o of left TKA 12/2017. ROS Musc Reports as per HPI, Denies abnormal walking, Reports joint pain Skin/Breast Reports system reviewed and no additional complaints, except as docu, Reports as per HPI Neuro Yes as per HPI, No abnormal walking Ortho Exam Right Knee Skin/Wound: No erythema, No ecchymosis, No swelling Homans Sign: No Knee ROM: Yes ROM-Extension -20 to 0, Yes ROM-Flexion 0-140 Examination: Yes Med jt line tenderness, No Lat jt line tenderness, Yes Pain with flexion Stability: NML: Anterior Drawer, NML: Posterior Drawer, NML: Valgus 30, NML: Varus 30, 2+: Varus 0 (fixed ) Patella Translation: 1 Apprehension with Lateral Translation: No Patella Grind: No KNEE: neuro intact, distal pulse good, Left Knee Patella Translation: 1 Supplemental Info X-ray on disc of 10/01/2018: Severe DJD varus deformity Assessment & Plan Problems 1. Primary osteoarthritis of right knee M17.11 Plan Explained that due to the severe OA noted he is a candidate for a TKA. Reviewed traditional procedure vs robotic assistance as well as the post op restrictions. Risks, benefits and alternatives of surgery reviewed including but not limited to bleeding, infection, nerve, artery and/or tissue damage, fracture, VTE, mechanical feel of the knee, continued pain, stiffness and expected post-operative course. Follow up post op or sooner if pain, swelling, numbness or associated symptoms, or concerns develop. All questions answered. Patient in agreement of plan. Coding Level of Care Code Off vis,new,level 3 Diagnoses Primary osteoarthritis of right knee M17.11 ??Osteoarthritis type: primary I have re-examined the patient. There are no clinical changes since date of exam
[2019-10-29] VITALS (10 sets, daily range): BP systolic 112–155; BP diastolic 77–105; PULSE 70–91; RESP 14–18; TEMP 36.4–36.8; O2SAT 98–100; BMI 23.9
[2019-10-29 09:35] LABS: Bedside Glucose 62 mg/dL (70-110)
[2019-10-29] MEDS: Magnesium Sulfate 4gm/100mL 4 GM/100 ML IV.SOLN. IV (09:42)
[2019-10-29] MEDS: Gabapentin 600 MG Tablet PO (09:43)
[2019-10-29] MEDS: Acetaminophen 500 MG Tablet 1000 MG PO ×2 (09:43→21:27)
[2019-10-29] MEDS: Celecoxib 200 MG Capsule 400 MG PO (09:43)
[2019-10-29] MEDS: Scopolamine 1mg/72hr Patch 1 PATCH TRANSDERM. (09:44)
[2019-10-29] MEDS: Lactated Ringers 1,000 ML 100 ML IV (10:00)
[2019-10-29] MEDS: dexAMETHasone 10 MG/ML Vial IV (10:25)
[2019-10-29] MEDS: Cefazolin 2 GM in 0.9% Normal Saline 100 ML IV (10:29)
[2019-10-29] MEDS: Lactated Ringers 1,000 ML 125 ML IV ×4 (11:31→21:20)
[2019-10-29] MEDS: Betamethasone/Betamethasone 30 MG/5 ML Vial (11:39)
[2019-10-29] MEDS: Bupivacaine 0.5% PF 10 ML VIAL (11:39)
[2019-10-29] MEDS: Epinephrine (1 mg/ml) 1 MG/ML VIAL (11:39)
[2019-10-29] MEDS: 0.9% Normal Saline (Pres. free 10 ML Vial (11:40)
--- NOTE | 2019-10-29 11:57 | RAD_ITS ---
STUDY: X-RAY - RIGHT KNEE REASON FOR EXAM: Male, 69 years old. Total knee replacement. TECHNIQUE: 2 view(s) of the knee. COMPARISON: Comparison is made with prior examination dated October 25, 2019. FINDINGS: The patient is status post total knee replacement. Postoperative soft tissue changes. RAD/Knee 1 or 2 Views IMPRESSION: The patient is status post total knee replacement. There is good alignment. Postoperative soft tissue changes. Electronically Signed: Tamir Palma, at 12:58 EST , Service support ,
--- NOTE | 2019-10-29 12:03 | OP.PCM_ITS ---
Report of Operation Date of Procedure: 10/29/19 Description of Surgical Findings:: Preoperative diagnosis: Right knee DJD Postoperative diagnosis: Same Procedure: Right total knee arthroplasty Implant: [place] triathlon cemented right femoral component size 6, cemented tibial baseplate size 5, cemented asymmetric patella size 38, polyethylene X3 size 9 CS Anesthesia: Spinal with adductor canal block Tourniquet time: 66 minutes at 300 mmHg Complications: None Condition: Stable to PACU Estimated blood loss: 25 cc Indication for procedure: This is a 69-year-old male with long standing degenerative joint disease of the knee who has failed conservative treatment and wished to proceed with elective total knee arthroplasty. Risk benefits and alternatives were reviewed including; risk of bleeding, infection, nerve artery and tissue damage, continued pain, postoperative stiffness, venous thromboembolism, need for postoperative rehabilitation, mechanical feel to the knee, and expected postoperative course. Procedure: The patient was met in the preoperative holding area. The operative extremity was identified by both patient and physician and was marked. Patient was met by anesthesia. An adductor canal block was placed by anesthesia postoperatively the patient was brought back to the operating room on a wheeled cart and transferred to the operating table in the supine position. Anesthesia was started. A well-padded tourniquet was placed on the operative extremity. The patient was prepped and draped in the usual sterile fashion. A timeout was called to ensure the proper patient procedure and extremity were being contemplated. An Esmarch was used to exsanguinate the extremity. The tour niquet was inflated. A 10 blade scalpel was used to make a midline incision down through the skin and subcutaneous tissue. Skin retractors placed. Bovie was used to perform meticulous hemostasis. full-thickness flaps were elevated medial and lateral along the joint capsule. A deep blade scalpel was used to perform a medial parapatellar arthrotomy. The knee was brought to full extension. A Bovie was used to release the soft tissues off the most proximal aspect of the medial tibial plateau a three-quarter inch curved osteotome was also used for this process. The infrapatellar fat pad was excised. The fat pad was excised partially anterior lateral portion the anterior medial was elevated from the femur. the patella was everted. The knee was brought into flexion. An intramedullary drill was used followed by flexible intramedullary guide zoey. The distal femoral cutting block was placed and set to remove 12 mm of bone secondary to severe flexion contracture and 5 degrees of valgus. The block was secured with pins and an oscillating saw was used to complete the distal femoral cut. During this, and all bony cuts retractors were used to protect the collateral ligaments. At this point a femoral sizer was used to measure the AP dimension of the femur. The sizer block was pinned parallel to the epicondylar access for external rotation. The sizing block was removed and the ap propriately sized 4-in-1 cutting block was placed over the previously made pinholes. It was checked with an zeus wing and the block was secured with pins. An oscillating saw was used to complete the anterior cut followed by the posterior cut followed by the posterior chamfer cut followed by the anterior chamfer cut. The block was removed as well as the fragments. A ronguer was used to remove excess osteophytes. The medial and lateral meniscus were excised as well as the ACL. At this point a PCL retractor was placed and an intramedullary drill was passed down the tibial canal followed by a solid intramedullary guide zoey. The tibial cutting block was attached and set to remove 9 mm of bone from the high side. This was checked with an external alignment drop zoey for slope and tilt. It was pinned into place. An oscillating saw was used to complete the tibial plateau cut and the block was removed. A large osteotome was used to elevate the fragment and a Madhuri and a Bovie were used to free the fragment from the surrounding soft tissue. A rongeur was once again used to remove osteophytes a lamina auto design checker was used to evaluate the posterior capsular structures. A three-quarter inch curved osteotome was used to remove posterior osteophytes. A spacer block was inserted in both extension and flexion to ensure adequate spacing. Trials were inserted full extension and flexion were achieved in varus and valgus stability throughout range of motion were seen, balancing techniques were performed. At this point the attention was turned towards the patella. A caliper was used to ensure sufficient bone stock to remove 10 mm of bone. A reamer was used to perform this task. Lug holes were made for the appropriate-sized patella. The patella trial was inserted and there was good patellar tracking with knee range of motion. The tibial baseplate was allowed to float into rotation and was marked on the tibial plateau with a Bovie. Lug holes were made in the femur and trials were removed. The tibial baseplate was then sized and its preparation was completed with a fin punch. The knee was thoroughly irrigated. A posterior capsular injection was performed with our standard cocktail. The knee was brought into flexion and irrigated again. The tibial baseplate was cemented. Excess cement was removed with curettes. The polyethylene component was inserted. The femoral component was cemented. The knee was brought into full extension and placed on a bump. The patellar component was cemented. At this point a Betadine rinse was placed and thoroughly irrigated after a few minutes. This was followed by an Iricept rinse which was allowed to sit for 1 minute and then thoroughly irrigated.At this point all gloves were changed. The knee was thoroughly irrigated the joint capsule was closed with #1 Ethibond. Tourniquet was let down followed by 0 Vicryl and 2-0 Vicryl in the subcutaneous tissues. followed by running 3-0 Monocryl Steri-Strips. Dressing was applied in the form of Mepilex silver dressing web roll and an [place] wrap from the foot to the groin. The patient tolerated the procedure well, all counts were correct patient was brought back to the PACU in stable condition.
[2019-10-29] MEDS: Cefazolin 1 GM/50 ML BAG IV ×2 (14:37→21:20)
[2019-10-29] MEDS: oxyCODONE 5 MG Tablet PO (15:38)
[2019-10-29] MEDS: Lisinopril 10 MG Tablet PO (21:20)
[2019-10-29] MEDS: Senna/Docusate Sodium 1 Tablet 2 TABLET PO (21:26)
[2019-10-30 03:00] VITALS: BP 164/96; PULSE 79; RESP 16; TEMP 36.9; O2SAT 98
[2019-10-30] MEDS: Cefazolin 1 GM/50 ML BAG IV (05:20)
[2019-10-30] MEDS: Acetaminophen 500 MG Tablet 1000 MG PO ×2 (06:15→14:11)
[2019-10-30] MEDS: APIXABAN 2.5 MG TABLET PO (06:15)
[2019-10-30 06:19] LABS: Anion Gap 6 (5-15); BUN 18 mg/dL (7-18); BUN/Creat Ratio 14.2 RATIO (10-20); Calcium,Total 8.4 mg/dL (8.5-10.1); Chloride 108 mmol/L (98-107); Creatinine, Serum 1.27 mg/dL (0.70-1.30); EST Glomerular Filtration Rate 60 mL/min (>60); Est Glom Filt Rate - Afr Amer 72 mL/min (>60); Estimated Creatinine Clearance 55.88 ml/min; Glucose 120 mg/dL (74-106); Potassium 4.3 mmol/L (3.5-5.1); Sodium Level 138 mmol/L (136-145)
[2019-10-30 06:20] LABS: Mean Corp Hgb Conc 33.3 g/dL (32-36); Mean Corpuscular Volume 89.9 fL (80-94); Mean Platelet Vol. 9.5 fl (6.2-12.0); Platelet Count 281 K/mm3 (150-450); RBC Distribution Width CV 13.3 % (11.6-14.6); RBC Distribution Width SD 43.8 fl (35.1-43.9); Red Blood Count 4.34 M/mm3 (4.6-6.2); White Blood Count 10.3 K/mm3 (4.4-11.0)
[2019-10-30] MEDS: Lisinopril 10 MG Tablet 20 MG PO (08:43)
[2019-10-30] MEDS: Multivitamins,Therapeutic Tablet 1 TABLET PO (08:43)
[2019-10-30] MEDS: oxyCODONE 5 MG Tablet PO (08:43)
[2019-10-30 08:46] VITALS: BP 127/86; PULSE 90; RESP 18; TEMP 36.5; O2SAT 97
[2019-10-30] MEDS: Senna/Docusate Sodium 1 Tablet 2 TABLET PO (08:50)
--- NOTE | 2019-10-30 10:15 | CASEMGMT ---
RN FEDER[place] Face to Face with patient for initial transition planning/care coordination assessment. RN CM introduced self and role at [facility]. Patient sitting in chair, alert and oriented. Patient willing to participate in assessment and is able to answer all questions appropriately. Care providers, pharmacy, and demographics verified. Patient wishes to discharge home and is setup with [facility] for outpatient therapy. Patient states he has no further needs or concerns at this time. CM to follow for discharge planning needs that may arise. PCP: Tyrel Specialists: Luis Ayala Pharmacy: [facility] Retail Insurance: [facility] Prescription Benefit: yes Living Will/HPOA: none LNOK: Living Arrangements: Patient lives with in 2 story home with bed and bath on main level. Patient independent at home prior to surgery. Transportation: DME/HHC: Patient has shower chair, raised toilet, cane, walker at home. Patient is setup for outpatient therapy at [facility] on Monday. Disposition Plan: Patient to discharge home with family support and follow-up plans in place. Ayse CRUZ, RN, CM
--- NOTE | 2019-10-30 12:29 | PCM.DC.ORTHO ---
Discharge Diet: No Restrictions Weight Bearing Status: Weight bearing as tolerated Call your doctor if you observe: Shortness of breath, Chest pain Additional Instructions: Ice and elevate next week while not ambulating. Encourage ambulation weightbearing as tolerated. Encourage FULL knee extension and flexion 1 time EVERY time you get up and down and MULTIPLE times per day. Begin showering postop day #3. Remove the dressing prior to shower gently wash with warm water and antibacterial soap then pat dry place ABD pad and ZAHIDA hose over top. This is to be done daily. do not submerge for 3 weeks. If not showering daily must clean incision and change dressing daily. Do not allow animals near incision keep clean. Follow anticoagulation recommendations. Start physical therapy as directed in the hospital. call Dr. Smith with any concerns. Allergies/Adverse Reactions: Allergies No Known Allergies Allergy (Verified 10/29/19 09:34) Medications to take at Discharge Cholecalciferol (Vitamin D3) [Vitamin D3] 2,000 unit PO DAILY 12/18/17 Flaxseed Oil [[place]-3 Flaxseed Oil] 750 mg PO DAILY 12/18/17 Lisinopril [Zestril] 10 mg PO QHS 12/18/17 Multivitamin [Multiple Vitamins] 1 ea PO DAILY 12/18/17 lisinopril 10 mg tablet 20 mg PO 0900 05/02/18 Aspirin E.C. [Ecotrin] 81 mg PO DAILY@0800 10/22/19 Calcium Carbonate/Vitamin D3 [Calcium 500-Vit D3 600 Caplet] 1 ea PO DAILY 10/22/19 Acetaminophen [Tylenol] 1,000 mg PO Q6H PRN #100 tab 10/30/19 Apixaban [Eliquis] 2.5 mg PO BID #28 tab 10/30/19 Oxycodone [Oxyir] 5 - 10 mg PO Q4H PRN PRN #60 tablet 10/30/19 The following prescriptions were given: Apixaban [Eliquis] 2.5 mg PO BID #28 tab Transmission Status: Pending to [facility] Oxycodone [Oxyir] 5 - 10 mg PO Q4H PRN PRN #60 tablet PRN Reason: Pain Score 4-10/10 Transmission Status: Sent to [facility] Acetaminophen [Tylenol] 1,000 mg PO Q6H PRN #100 tab Transmission Status: Pending to [facility] Primary Care Physician: Ba Sarah MD [Primary Care Provider] - Test Results: Test results from this visit will be discussed in further detail at your follow-up appointment, if applicable. Please Follow Up With: Guanaco Smith DO - 2 weeks
--- NOTE | 2019-10-30 12:31 | DS.PCM_ITS ---
Discharge Date and Diagnosis Date of Admission: 10/29/19 Date of Discharge: 10/30/19 Hospital Course and Treatment Summary of Care Provided: The patient is a 69 year old M the patient has with long-standing history of knee DJD and has failed conservative treatment. Patient wished to undergo elective total knee arthroplasty and underwent the aforementioned procedure on the admission date without complications. patient did receive pre-and postoperative antibiotics which were discontinued within 23 hours postoperatively. patient did receive [a spinal anesthesia and a adductor canal block ]and the pain was controlled postoperatively with p.o. and IV pain medicat ion. There was minimal intraoperative blood loss he did [receive 2 g of tranexamic acid ]and his vital signs and labs were stable postoperatively and patient [did not require a blood transfusion]. patient was seen by physical therapy and did progress with his ambulation. Postoperatively was started on both mechanical and chemical DVT prophylaxis for which patient will continue [ Eliquis 2.5 mg twice daily] for 2 additional weeks post hospital discharge. Patient [place] wrap was removed in the morning of postop day 1 without any concerning signs. Silverlon dressing will stay on for 72 hours postoperatively at which time patient will begin showering on postop day #3 with daily dressing changes. Encouraged patient to achieve full range of motion as soon as possible, Patient will sart outpatient physical therapy and will follow-up in the office in 2 weeks for wound check. There is no intrahospital complications . Subjective: Alert and oriented no acute distress denies chest pain shortness of breath fevers chills nausea vomiting - Physical Exam Vitals/I&O's: Vital Signs Temp Pulse Resp BP Pulse Ox 97.7 F L 90 18 127/86 H 97 10/30/19 08:46 10/30/19 08:46 10/30/19 08:46 10/30/19 08:46 10/30/19 08:46 Oxygen Flow Rate (L/min) 6 Oxygen Delivery Method Room Air Weight: 166 lb 10.711 oz Body Mass Index (BMI) 23.9 Intake and Output for Last 24 Hours 10/28/19 10/29/19 10/30/19 23:59 23:59 23:59 Intake Total 4586.25 / 4936.25 1700 / 1700 Output Total 800 / 1100 1050 / 1050 Balance 3786.25 / 3836.25 650 / 650 General: Alert, Oriented x3, Cooperative, No apparent distress Extremities: - - Dressing clean dry intact neurovascular intact compartments soft and compressible Laboratory Results 10/30/19 05:44: WBC 10.3, RBC 4.34 L, Hgb 13.0, Hct 39.0 L, MCV 89.9, MCH 30.0, MCHC 33.3, RDW Std Deviation 43.8, RDW Coeff of Vicki 13.3, Plt Count 281, MPV 9.5 10/30/19 05:44: Sodium 138, Potassium 4.3, Chloride 108 H, Carbon Dioxide 24.0, Anion Gap 6, BUN 18, Creatinine 1.27, Estim Creat Clear Calc 55.88, Est GFR (MDRD) Af Amer 72, Est GFR (MDRD) Non-Af 60, BUN/Creatinine Ratio 14.2, Glucose 120 H, Calcium 8.4 L Current Medications Acetaminophen (Tylenol) 1,000 mg PO Q8 [facility] Last Admin: 10/30/19 06:15 Dose: 1,000 mg Documented by: Apixaban (Eliquis) 2.5 mg PO BID [facility] Last Admin: 10/30/19 06:15 Dose: 2.5 mg Documented by: Hydromorphone HCl (Dilaudid Inj) 0.5 mg IV Q2H PRN PRN PRN Reason: Pain Score 6-10/10 Insulin Human Lispro (Humalog Kwikpen (Bkc)) 1 - 6 unit SC Q4H PRN PRN; Protocol PRN Reason: BG>/= 180, SEE PROTOCOL Ketorolac Tromethamine (Toradol) 15 mg IV Q6H PRN PRN PRN Reason: Pain Score 1-5/10 Stop: 10/31/19 11:58 Lisinopril (Zestril) 20 mg PO 0900 [facility] Last Admin: 10/30/19 08:43 Dose: 20 mg Documented by: Lisinopril (Zestril) 10 mg PO QHS [facility] Last Admin: 10/29/19 21:20 Dose: 10 mg Documented by: Multivitamins (Multivitamin) 1 tablet PO DAILY@0800 [facility] Last Admin: 10/30/19 08:43 Dose: 1 tablet Documented by: Ondansetron HCl (Zofran) 4 mg IV Q6H PRN PRN PRN Reason: NAUSEA Oxycodone HCl (Oxyir) 5 - 10 mg PO Q4H PRN PRN PRN Reason: Pain Score 4-10/10 Last Admin: 10/30/19 08:43 Dose: 5 mg Documented by: Senna/Docusate Sodium (Senokot-S, [place]-Colace) 2 tablet PO BID [facility] Last Admin: 10/30/19 08:50 Dose: 2 tablet Documented by: Sodium Chloride () 10 - 40 ml IV UD PRN PRN Reason: SALINE FLUSH Discharge Diet: No Restrictions Weight Bearing Status: Weight bearing as tolerated Call your doctor if you observe: Shortness of breath, Chest pain Home Medications: Medications to take at Discharge Cholecalciferol (Vitamin D3) [Vitamin D3] 2,000 unit PO DAILY 12/18/17 Flaxseed Oil [[place]-3 Flaxseed Oil] 750 mg PO DAILY 12/18/17 Lisinopril [Zestril] 10 mg PO QHS 12/18/17 Multivitamin [Multiple Vitamins] 1 ea PO DAILY 12/18/17 lisinopril 10 mg tablet 20 mg PO 0900 05/02/18 Aspirin E.C. [Ecotrin] 81 mg PO DAILY@0800 10/22/19 Calcium Carbonate/Vitamin D3 [Calcium 500-Vit D3 600 Caplet] 1 ea PO DAILY 10/22/19 Acetaminophen [Tylenol] 1,000 mg PO Q6H PRN #100 tab 10/30/19 Apixaban [Eliquis] 2.5 mg PO BID #28 tab 10/30/19 Oxycodone [Oxyir] 5 - 10 mg PO Q4H PRN PRN #60 tablet 10/30/19 Following Prescrptions Were Given to Patient: Apixaban [Eliquis] 2.5 mg PO BID #28 tab Transmission Status: Pending to [facility] Oxycodone [Oxyir] 5 - 10 mg PO Q4H PRN PRN #60 tablet PRN Reason: Pain Score 4-10/10 Transmission Status: Sent to [facility] Acetaminophen [Tylenol] 1,000 mg PO Q6H PRN #100 tab Transmission Status: Pending to [facility] Primary Care Physician: Ba Sarah MD [Primary Care Provider] - Please Follow Up With: Borruso,Guanaco, DO - 2 weeks Additional Instructions: Ice and elevate next week while not ambulating. Encourage ambulation weightbearing as tolerated. Encourage FULL knee extension and flexion 1 time EVERY time you get up and down and MULTIPLE times per day. Begin showering postop day #3. Remove the dressing prior to shower gently wash with warm water and antibacterial soap then pat dry place ABD pad and ZAHIDA hose over top. This is to be done daily. do not submerge for 3 weeks. If not showering daily must clean incision and change dressing daily. Do not allow animals near incision keep clean. Follow anticoagulation recommendations. Start physical therapy as directed in the hospital. call Dr. Smith with any concerns. Medical Necessity - Tobacco Use Smoking Status: Former smoker Tobacco Use: Non-smoker Meaningful Use Info Meaningful Use Diagnoses (Choose all that apply): None applicable
--- NOTE | 2019-10-30 13:45 | CASEMGMT ---
JOSY CABALLERO completed ANG form with patient. Patient had no questions or concern. Form signed by patient, copy provided to patient. JOSY CABALLERO placed original on chart.
[2019-10-30 14:17] VITALS: BP 150/94; PULSE 73; RESP 18; TEMP 36.7; O2SAT 98
== END 2019-10-30 14:26 | disposition home or self-care (01) ==
LOC: SDC 12:15 → MS3 10-30 07:47
PROVIDERS: Admitting Provider Orthopaedic Surgery; Family Provider Family Medicine; PCP Family Medicine; Referring Provider Orthopaedic Surgery; Visit Provider Orthopaedic Surgery
PROC: (CPT 27447; principal; 2019-10-29 10:45)
DX: M17.11 Unilateral primary osteoarthritis, right knee (principal); I10 Essential (primary) hypertension; Z79.899 Other long term (current) drug therapy; Z79.82 Long term (current) use of aspirin; Z87.891 Personal history of nicotine dependence
CPT/HCPCS: 27447; 64447; 36415; 73560; 80048; 82962; 85027; 87081; 96361; 96365; 96366; 97110; 97162; 97166; 97530; 99218; 99251; C1776; J7120; G0378; G0379; G0463; J0702; J3490

== ENCOUNTER 2019-12-24 10:13 | Day surgery (SDC) | payer MEDICARE, SELFPAY ==
--- NOTE | 2019-12-18 04:02 | HP_ITS ---
Intake Intake Visit Reasons: LEFT KNEE Is patient in pain?: No Allergies No Known Allergies Allergy (Verified 10/29/19 09:34) Medications Cholecalciferol (Vitamin D3) [Vitamin D3] 2,000 unit PO DAILY 12/18/17 [History Confirmed 12/18/19] Flaxseed Oil [[place]-3 Flaxseed Oil] 750 mg PO DAILY 12/18/17 [History Confirmed 12/18/19] Lisinopril [Zestril] 10 mg PO QHS 12/18/17 [History Confirmed 12/18/19] Multivitamin [Multiple Vitamins] 1 ea PO DAILY 12/18/17 [History Confirmed 12/18/19] lisinopril 10 mg tablet 20 mg PO 0900 05/02/18 [History Confirmed 12/18/19] Aspirin E.C. [Ecotrin] 81 mg PO DAILY@0800 10/22/19 [History Confirmed 12/18/19] Calcium Carbonate/Vitamin D3 [Calcium 500-Vit D3 600 Caplet] 1 ea PO DAILY 10/22/19 [History Confirmed 12/18/19] Acetaminophen [Tylenol] 1,000 mg PO Q6H PRN #100 tab 10/30/19 [Rx Confirmed 12/18/19] Oxycodone [Oxyir] 5 - 10 mg PO Q4H PRN PRN #60 tab 10/30/19 [Rx Confirmed 12/18/19] oxycodone 5 mg capsule 5 mg PO Q6H PRN #56 cap 11/11/19 [Rx Confirmed 12/18/19] [facility] Medical History (Updated 10/28/19 @ 12:59 by Guanaco Smith DO) Arthritis (Acute) Hypertension (Chronic) Surgical History (Updated 10/28/19 @ 12:59 by Guanaco Smith DO) History of arthroscopy of both knees (Acute) History of hernia repair (Acute) History of left knee surgery (Acute) History of tonsillectomy (Acute) S/P inguinal hernia repair (Acute) Social History (Updated 12/18/19 @ 16:02 by Guanaco Smith DO) Smoking Status: Former smoker alcohol intake: current alcohol intake frequency: a few times a month substance use type: does not use HPI LEFT KNEE: Surgical H&P: Yes Details: Parts of this documentation were recorded by a scribe, this documentation accurately reflects the service provided and the decisions made by me, Guanaco Smith DO 12/18/19 0914. LETICIA MOORE is a 69 year old M here today for 7 week post op on right TKA. DOS: 10/29/2019. Patient continues with PT. Is lacking with full extension and is a less than 90 with his flexion. Denies numbness, tingling or other associated symptoms. He denies any pain at rest or while walking. Does have swelling over his lower right leg. Denies any calf pain. Denies any fevers for chills. Ortho Exam Right Knee Date of Surgery: 10/29/19 Skin/Wound: No erythema, No ecchymosis, Yes swelling (mild ) Homans Sign: No Knee ROM: No ROM-Extension -20 to 0 (lacking 10), No ROM-Flexion 0-140 (84) Apprehension with Lateral Translation: No KNEE: no s/sx of infection Supplemental Info X-ray on disc of 10/01/2018: Severe DJD varus deformity Assessment & Plan Problems 1. Orthopedic aftercare Z47.89 2. Arthrofibrosis of total knee replacement, subsequent encounter T84.82XD Plan Patient educated that since he is lacking with flexion and extension it is recommended that he has a manipulation under anesthesia with intra-articular injection. Educated on the process for the the manipulation. Educated that after the manipulation he shoulder start ROM and continue with PT. Patient does wish to proceed with manipulation today. Educated that the risk of this procedure are tendon rupture or fx. Encouraged to take his pain medication prior to PT after he has this manipulation. We will do the manipulation on Monday. Patient wishes to be the last case of the day. Educated that he will have increased pain and increased swelling after this procedure. Follow up 4 week post op from manipulation or sooner if pain, swelling, numbness or associated symptoms, or concerns develop. All questions answered. Patient in agreement of plan. Coding Level of Care Code Global Post Op Diagnoses Orthopedic aftercare Z47.89 Arthrofibrosis of total knee replacement, subsequent encounter T84.82XD ??Encounter type: subsequent encounter 12/18/19 1602 <Electronically signed by Guanaco jackson DO> Date _ Guanaco Smith DO
[2019-12-18 09:15] VITALS: BMI 23.9
--- NOTE | 2019-12-24 10:39 | HP.PCM_ITS ---
History and Physical Date of Admission: 12/24/19 Intake Intake Visit Reasons: LEFT KNEE Is patient in pain?: No Allergies No Known Allergies Allergy (Verified 10/29/19 09:34) Medications Cholecalciferol (Vitamin D3) [Vitamin D3] 2,000 unit PO DAILY 12/18/17 [History Confirmed 12/18/19] Flaxseed Oil [[place]-3 Flaxseed Oil] 750 mg PO DAILY 12/18/17 [History Confirmed 12/18/19] Lisinopril [Zestril] 10 mg PO QHS 12/18/17 [History Confirmed 12/18/19] Multivitamin [Multiple Vitamins] 1 ea PO DAILY 12/18/17 [History Confirmed 12/18/19] lisinopril 10 mg tablet 20 mg PO 0900 05/02/18 [History Confirmed 12/18/19] Aspirin E.C. [Ecotrin] 81 mg PO DAILY@0800 10/22/19 [History Confirmed 12/18/19] Calcium Carbonate/Vitamin D3 [Calcium 500-Vit D3 600 Caplet] 1 ea PO DAILY 10/22/19 [History Confirmed 12/18/19] Acetaminophen [Tylenol] 1,000 mg PO Q6H PRN #100 tab 10/30/19 [Rx Confirmed 12/18/19] Oxycodone [Oxyir] 5 - 10 mg PO Q4H PRN PRN #60 tab 10/30/19 [Rx Confirmed 12/18/19] oxycodone 5 mg capsule 5 mg PO Q6H PRN #56 cap 11/11/19 [Rx Confirmed 12/18/19] [facility] Medical History (Updated 10/28/19 @ 12:59 by Guanaco Smith DO) Arthritis (Acute) Hypertension (Chronic) Surgical History (Updated 10/28/19 @ 12:59 by Guanaco Smith DO) History of arthroscopy of both knees (Acute) History of hernia repair (Acute) History of left knee surgery (Acute) History of tonsillectomy (Acute) S/P inguinal hernia repair (Acute) Social History (Updated 12/18/19 @ 16:02 by Guanaco Smith DO) Smoking Status: Former smoker alcohol intake: current alcohol intake frequency: a few times a month substance use type: does not use HPI LEFT KNEE: Surgical H&P: Yes Details: Parts of this documentation were recorded by a scribe, this documentation accurately reflects the service provided and the decisions made by me, Guanaco Smith, 12/18/19 0914. LETICIA MOORE is a 69 year old M here today for 7 week post op on right TKA. DOS: 10/29/2019. Patient continues with PT. Is lacking with full extension and is a less than 90 with his flexion. Denies numbness, tingling or other associated symptoms. He denies any pain at rest or while walking. Does have swelling over his lower right leg. Denies any calf pain. Denies any fevers for chills. Ortho Exam Right Knee Date of Surgery: 10/29/19 Skin/Wound: No erythema, No ecchymosis, Yes swelling (mild ) Homans Sign: No Knee ROM: No ROM-Extension -20 to 0 (lacking 10), No ROM-Flexion 0-140 (84) Apprehension with Lateral Translation: No KNEE: no s/sx of infection Supplemental Info X-ray on disc of 10/01/2018: Severe DJD varus deformity Assessment & Plan Problems 1. Orthopedic aftercare Z47.89 2. Arthrofibrosis of total knee replacement, subsequent encounter T84.82XD Plan Patient educated that since he is lacking with flexion and extension it is recommended that he has a manipulation under anesthesia with intra-articular injection. Educated on the process for the the manipulation. Educated that after the manipulation he shoulder start ROM and continue with PT. Patient does wish to proceed with manipulation today. Educated that the risk of this procedure are tendon rupture or fx. Encouraged to take his pain medication prior to PT after he has this manipulation. We will do the manipulation on Monday. Patient wishes to be the last case of the day. Educated that he will have increased pain and increased swelling after this procedure. Follow up 4 week post op from manipulation or sooner if pain, swelling, numbness or associated symptoms, or concerns develop. All questions answered. Patient in agreement of plan. Coding Level of Care Code Global Post Op Diagnoses Orthopedic aftercare Z47.89 Arthrofibrosis of total knee replacement, subsequent encounter T84.82XD ??Encounter type: subsequent encounter I have re-examined the patient. There are no clinical changes since date of exam
[2019-12-24 10:40] VITALS: BP 144/96; PULSE 96; RESP 18; TEMP 36.9; O2SAT 99; BMI 22.2
[2019-12-24] MEDS: Lactated Ringers 1,000 ML 100 ML IV (10:51)
[2019-12-24] MEDS: Cefazolin 2 GM in 0.9% Normal Saline 100 ML IV (11:40)
[2019-12-24] MEDS: Bupiv/Epi 0.25% 30 ML Vial (11:50)
[2019-12-24] MEDS: MethylPREDNISolone Acetate 80 MG/ML Vial (11:50)
--- NOTE | 2019-12-24 11:56 | OP.PCM_ITS ---
Report of Operation Date of Procedure: 12/24/19 Description of Surgical Findings:: Preoperative diagnosis: Arthrofibrosis right knee Postoperative diagnosis: Same Procedure: Manipulation under anesthesia with intra-articular steroid injection Anesthesia: General EBL: None Complications: None Condition: Able to PACU Indication for procedure: This is a 69-year-old male who underwent total knee arthroplasty approximately 7 weeks ago who is failed to gain her range of motion wish to undergo an elective manipulation under anesthesia to increase range of motion. risk benefits and alternatives were reviewed including risk of bleeding infection nerve, artery, bone, tissue damage, blood clot need for further surge ry and continued pain. Procedure: Patient was met in the preoperative holding area once again the operative extremity was identified by both patient and physician and was marked. Patient was brought back to the operating room anesthesia was started. A timeout was called into the proper patient procedure and extremity were being contemplated. The operative range of motion was lacking 10 extension and achieving 85]degrees flexion. After patient was adequately anesthetized extension manipulation was performed followed by patellar mobilization followed by gradual flexion scar tissue was palpated being released with no concerning signs for tendon rupture or fracture. Postoperative range of motion was much improved with lacking 3]extension versus contralateral lacking 7 and 130 degrees degrees of flexion with resting posture of 115 degrees versus contralateral 110.
--- NOTE | 2019-12-24 11:58 | DCINST_ITS ---
Discharge Diet: No Restrictions Weight Bearing Status: Weight bearing as tolerated Additional Instructions: Weightbearing as tolerated. Encourage full knee extension and flexion immediately. Resume physical therapy immediately. Pain medication as prescribed. May shower. Call with any concerns. Allergies/Adverse Reactions: Allergies No Known Allergies Allergy (Verified 12/24/19 10:38) Medications to take at Discharge Cholecalciferol (Vitamin D3) [Vitamin D3] 2,000 unit PO DAILY 12/18/17 Flaxseed Oil [[place]-3 Flaxseed Oil] 750 mg PO DAILY 12/18/17 Lisinopril [Zestril] 10 mg PO QHS 12/18/17 Multivitamin [Multiple Vitamins] 1 ea PO DAILY 12/18/17 lisinopril 10 mg tablet 20 mg PO 0900 05/02/18 Aspirin E.C. [Ecotrin] 81 mg PO DAILY@0800 10/22/19 Calcium Carbonate/Vitamin D3 [Calcium 500-Vit D3 600 Caplet] 1 ea PO DAILY 10/22/19 oxycodone 5 mg capsule 5 mg PO Q6H PRN #56 cap 11/11/19 Acyclovir [Zovirax] 400 mg PO PRN PRN 12/20/19 Acetaminophen [Tylenol Extra Strength] 1,000 mg PO Q6H PRN #100 tab 12/24/19 Oxycodone [Oxyir] 5 mg PO Q4H PRN PRN #60 tab 12/24/19 The following prescriptions were given: Oxycodone [Oxyir] 5 mg PO Q4H PRN PRN #60 tab PRN Reason: Pain Score 1-5/10 Transmission Status: Received by [facility] Acetaminophen [Tylenol Extra Strength] 1,000 mg PO Q6H PRN #100 tab Transmission Status: Received by [facility] Primary Care Physician: Ba Sarah MD [Primary Care Provider] - Test Results: Test results from this visit will be discussed in further detail at your follow- up appointment, if applicable. Please Follow Up With: Guanaco Smith DO - 4 weeks
[2019-12-24 12:02] VITALS: BP 144/96; BP 149/99; PULSE 86; RESP 14; TEMP 37.3; O2SAT 100
[2019-12-24 12:05] VITALS: BP 144/96; BP 150/102; PULSE 84; RESP 14; O2SAT 99
[2019-12-24 12:10] VITALS: BP 144/96; BP 160/108; PULSE 86; RESP 16; O2SAT 99
[2019-12-24 12:15] VITALS: BP 144/96; BP 163/107; PULSE 85; RESP 14; O2SAT 100
[2019-12-24 12:20] VITALS: BP 144/96; BP 161/105; PULSE 83; RESP 14; TEMP 36.3; O2SAT 97
== END 2019-12-24 13:05 | disposition home or self-care (01) ==
LOC: SDC 10:13 → AC 10:15
PROVIDERS: PCP Family Medicine; Referring Provider Orthopaedic Surgery; Visit Provider Orthopaedic Surgery
PROC: (CPT 27570; principal; 2019-12-24 11:40)
DX: T84.82XA Fibrosis due to internal orthopedic prosthetic devices, implants and grafts, initial encounter (principal); M24.661 Ankylosis, right knee; I10 Essential (primary) hypertension; Z96.651 Presence of right artificial knee joint; Z79.891 Long term (current) use of opiate analgesic; Z79.82 Long term (current) use of aspirin; Z79.899 Other long term (current) drug therapy; Z87.891 Personal history of nicotine dependence; Z85.828 Personal history of other malignant neoplasm of skin
CPT/HCPCS: 20610; 27570; J7120

== ENCOUNTER 2020-01-28 16:00 | Outpatient (RCR) | payer MEDICARE, SELFPAY ==
[2019-10-21 08:06] VITALS: BMI 22.5
[2019-10-29 13:52] VITALS: BMI 23.9
--- NOTE | 2019-11-05 14:52 | HP.PTEVAL_ITS ---
Patient's Visit Information LETICIA MOORE is a 69 year old M referred to Physical Therapy by Guanaco Smith DO with a diagnosis of R TKA. Date of Evaluation: 11/05/19 Physical Therapist: Héctor Hoang DPT - Visit Plan Frequency: 2-3x /Week Duration: 4-6 Weeks Plan: Start flexion/extension stretching, add in isometrics, HS stretching. Progressing to functional strengthening. May use vaso and ice to reduce edema. - Subjective Findings: Pt. is here today for his initial evaluation S/P R TKA. DOS: 10/29/19. Pt. reports having some pain, but 3-4/10 with walking and movement, 0- 2/10 at rest. Pt. denies N/T. He did not have zahida, but did have indwelling stiches. Pt. had is L knee replaced a few years ago. Pt. has not experience any chilles, changes in breathing, double vision. pt. has no calf pain. Pt. has been trying to complete his exercises at home, but reports having difficulty with SLR. Pt. is hopeful to get back to all walking and recreational activities without limitations. - Pain R knee Pain Intensity (Out of 10): 4 Pain Intensity Range: 3, 7 - Objective POSTURE: Pt. has good posture in stance, lacks TKE on RLE. Pt. has decreased wt. shift to R side as well. PALPATION: Pt. has tenderness throughout RLE both above and below kness. Pt. has bandage on knee to be removed next week. NEURO: Normal throughout BLEs. ROM: R knee 0-8-84deg. PT. has tight HS bilaterally as well. MMT: RLE- pt. is able to get a quad set, but difficult to maintain. Pt. unable to complete a SLR this date. R hip- abd 4-/5, ext 4-/5. GAIT: Pt. ambulates with FWW without LOB. Pt. lacks TKE during stance. Pt. has decreased step length and lacks knee flexion during swing phase. STAIRS: Pt. completed w ith step to pattern, use of B HR and loading LLE only. - Goals Goal 1:: Pt. to be I with HEP. Goal Time Frame: 4-6 Weeks Goal 2:: Pt. to have increased R knee ROM to 0-0-120deg. Goal Time Frame: 4-6 Weeks Goal 3:: Pt. to have increased RLE strength by 1/2 grade of all effected musculature. Goal Time Frame: 4-6 Weeks Goal 4:: Pt. to ambulate with out AD with normal gait pattern without increase in symptoms. Goal Time Frame: 4-6 Weeks Goal 5:: Pt. to sleep throughout the night without increase in symptoms. Goal Time Frame: 4-6 Weeks Goal 6:: Pt. to negotiate steps with reciprocal pattern with 1 HR with 0-1/10 pain in R knee Goal Time Frame: 4-6 Weeks - Rehabilitation Potential Physical Therapy Diagnosis: Pt. has signs and symptoms consistent with R TKA. PT. has subsequent hypombility, weakness, increased pain, difficulty with walking. Pt. would benefit from PT to address the above limitations progression back to all recreational activities without limitations. Rehabilitation Potential: Excellent - Anticipated Interventions Patient/Client Instruction: Educate patient on: Condition, Plan of Care, Risk Factors, Benefits of Fitness Program For the Purpose of:: To foster healthy habits, To improve decision making, To facilitate caregiver knowledge, To improve self management, To prevent re- injury, To improve ability to perform tasks related to life management, To improve tolerance to ADL's Therapeutic Exercise to Include: Strength training, Power training, Endurance training, Balance training, Postural training, Flexibilty training, Gait and locomotor training, Passive ROM, Active ROM For the Purpose of:: To decrease pain, To decrease swelling/inflammation, To increase ROM, To improve nutrient delivery to tissue, To increase oxygenation perfusion, To improve muscle performance and motor function, To improve ability to perform ADL's, To increase tolerance to activity/condition/position, To improve gait and locomotor functions, To improve health of tissue, To decrease soft tissue restriction, To increase flexibility/ROM Cryotherapy (ice pack, ice massage): Yes Vasopneumatic device: Yes For the Purpose of:: To decrease pain, To decrease swelling/inflammation, To increase ROM, To improve nutrient delivery to tissue Thank you for the opportunity to evaluate your patient. For Medicare and Medicare HMO plans, please review the plan of care and approve it. It will need to be FAXED BACK to us at [phone] for Medicare purposes. For Medicare only, by signing this I certify the plan of care. Please let me know if there are questions or concerns regarding this plan of care. Physician Signature: Date:
--- NOTE | 2019-12-09 11:44 | HP.PTREVAL_ITS ---
Guanaco Smith, DO, It has been my pleasure to treat LETICIA MOORE over the last 11 visits for R TKA. Please see the progress note below for an update on the physical therapy plan of care! Subjective: Pt. arrives today using spc with gait. Pt. does having a tendency to be stiff with his R knee during swing phase and lacks TKE during stance phase. PT. reports 3/10 pain pre treatment today. Taking medication as prescribed. Objective/Function: ROM: AAROM- 0-5-95deg (seated), PROM: 0-0-101deg. Pt. has painful end feel, (tight, but empty). MMT: 4/5 throughout RLE. GAIT: Pt. ambulates with SPC, but has limited knee flexion during swing phase and occassionally lacks TKE during stance phase. STAIRS: Pt. is able to complete with reciprocal pattern, but has increased soreness with descending on RLE. Uses BHR to complete. He continues to present with increased swelling surrrounding his knee, non joint effusion, but muscular swelling. Plan Plan: COnt. to focus on knee flexion and progression of gait to no AD. Instruction on proper mechanics and knee motions throughout gait cycle. Goals Goal 1:: Pt. to be I with HEP. Goal Time Frame: 4-6 Weeks Goal Progress: Progressing Goal 2:: Pt. to have increased R knee ROM to 0-0-120deg. Goal Time Frame: 4-6 Weeks Goal Progress: Progressing Goal 3:: Pt. to have increased RLE strength by 1/2 grade of all effected musculature. Goal Time Frame: 4-6 Weeks Goal Progress: Progressing Goal 4:: Pt. to ambulate with out AD with normal gait pattern without increase in symptoms. Goal Time Frame: 4-6 Weeks Goal Progress: Progressing Goal 5:: Pt. to sleep throughout the night without increase in symptoms. Goal Time Frame: 4-6 Weeks Goal Progress: Progressing Goal 6:: Pt. to negotiate steps with reciprocal pattern with 1 HR with 0-1/10 pain in R knee Goal Time Frame: 4-6 Weeks Goal Progress: Progressing Anticipated Interventions Patient/Client Instruction: Educate patient on: Condition, Plan of Care, Risk Factors, Benefits of Fitness Program For the Purpose of:: To foster healthy habits, To improve decision making, To facilitate caregiver knowledge, To improve self management, To prevent re-inj ury, To improve ability to perform tasks related to life management, To improve tolerance to ADL's Therapeutic Exercise to Include: Strength training, Power training, Endurance training, Balance training, Postural training, Flexibilty training, Gait and locomotor training, Passive ROM, Active ROM For the Purpose of:: To decrease pain, To decrease swelling/inflammation, To increase ROM, To improve nutrient delivery to tissue, To increase oxygenation perfusion, To improve muscle performance and motor function, To improve ability to perform ADL's, To increase tolerance to activity/condition/position, To improve gait and locomotor functions, To improve health of tissue, To decrease soft tissue restriction, To increase flexibility/ROM Cryotherapy (ice pack, ice massage): Yes Vasopneumatic device: Yes For the Purpose of:: To decrease pain, To decrease swelling/inflammation, To increase ROM, To improve nutrient delivery to tissue Please do not hesitate to contact me at [phone] by phone or if you have questions or concerns regarding this new plan of care! Sincerely, Héctor Hoang DPT
--- NOTE | 2019-12-25 16:51 | HP.PTREVAL_ITS ---
Guanaco Smith DO, It has been my pleasure to treat LETICIA MOORE over the last 17 visits for R TKA. Please see the progress note below for an update on the physical therapy plan of care! Subjective: Pt. reports today after getting a KWAKU. Pt. reports I am a little sore, but not too bad. Pt. arrives without cane this date. Pt. reports icing and stretching at home. Objective/Function: Pt. did well today. ROM: AROM- in supine 0-0-102deg. PROM 0-0-110deg. Pt. tolerated stretcing much better today. Cont. to work on quad stretching, knee joint ROM/mobs, HS stretching and gait Pt. is walking without AD, but still lacks TKE during stance phase. Improved knee flexion during swing phase. Pt. had good progress with ROM after KWAKU. I talked with him about continued stretching, increasing in aggressiveness and frequency. Pt. consents with this plan Plan Plan: increase aggressive stretching into both directions of knee fleixon and extension. Progress gait mechanics, but regain ROM first, progress functional strengthenign as ROM returns. Goals Goal 1:: Pt. to be I with HEP. Goal Time Frame: 4-6 Weeks Goal Progress: Progressing Goal 2:: Pt. to have increased R knee ROM to 0-0-120deg. Goal Time Frame: 4-6 Weeks Goal Progress: Progressing Goal 3:: Pt. to have increased RLE strength by 1/2 grade of all effected musculature. Goal Time Frame: 4-6 Weeks Goal Progress: Progressing Goal 4:: Pt. to ambulate with out AD with normal gait pattern without increase in symptoms. Goal Time Frame: 4-6 Weeks Goal Progress: Progressing Goal 5:: Pt. to sleep throughout the night without increase in symptoms. Goal Time Frame: 4-6 Weeks Goal Progress: Progressing Goal 6:: Pt. to negotiate steps with reciprocal pattern with 1 HR with 0-1/10 pain in R knee Goal Time Frame: 4-6 Weeks Goal Progress: Progressing Anticipated Interventions Patient/Client Instruction: Educate patient on: Condition, Plan of Care, Risk Factors, Benefits of Fitness Program For the Purpose of:: To foster healthy habits, To improve decision making, To facilitate caregiver knowledge, To improve self management, To prevent re- injury, To improve ability to perform tasks related to life management, To improve tolerance to ADL's Therapeutic Exercise to Include: Strength training, Power training, Endurance training, Balance training, Postural training, Flexibilty training, Gait and locomotor training, Passive ROM, Active ROM For the Purpose of:: To decrease pain, To decrease swelling/inflammation, To increase ROM, To improve nutrient delivery to tissue, To increase oxygenation perfusion, To improve muscle performance and motor function, To improve ability to perform ADL's, To increase tolerance to activity/condition/position, To improve gait and locomotor functions, To improve health of tissue, To decrease soft tissue restriction, To increase flexibility/ROM Cryotherapy (ice pack, ice massage): Yes Vasopneumatic device: Yes For the Purpose of:: To decrease pain, To decrease swelling/inflammation, To increase ROM, To improve nutrient delivery to tissue Please do not hesitate to contact me at [phone] by phone or if you have questions or concerns regarding this new plan of care! Sincerely, Héctor Hoang DPT
--- NOTE | 2020-01-13 10:55 | HP.PTREVAL_ITS ---
Guanaco Smith DO, It has been my pleasure to treat LETICIA MOORE over the last 20 visits for R TKA. Please see the progress note below for an update on the physical therapy plan of care! Subjective: Pt. reports overall about 75% better. Pt. is bending his knee better and is walking without AD. Pt. reports having 1/10 pain currently. Pt. is still worries about his edema. I talked to him about elvation ice, but slight increase in LE edema is normal as he starts being more active. Objective/Function: ROM: PROM: 0-0-110deg. PROM 0-0-117deg. MMT: Pt. has 4+/5 strength throughout BLEs. Pt. is walking better, but continues to require increased VCing for TKE during stance phase and increased knee flexion during swing phase. Pt. has improved with biking and ROM. Pt. is does have some clicking in his knee, but is not painful. Pt. still has some ROM to achieve. Plan Plan: I plan to continue seeing him with focus on final degrees of knee flexion and progressing functional strengthening. x2-3 per week for 4 weeks. Goals Goal 1:: Pt. to be I with HEP. Goal Time Frame: 4-6 Weeks Goal Progress: Progressing Goal 2:: Pt. to have increased R knee ROM to 0-0-120deg. Goal Time Frame: 4-6 Weeks Goal Progress: Progressing Goal 3:: Pt. to have increased RLE strength by 1/2 grade of all effected musculature. Goal Time Frame: 4-6 Weeks Goal Progress: Progressing Goal 4:: Pt. to ambulate with out AD with normal gait pattern without increase in symptoms. Goal Time Frame: 4-6 Weeks Goal Progress: Progressing Goal 5:: Pt. to sleep throughout the night without increase in symptoms. Goal Time Frame: 4-6 Weeks Goal Progress: Goal Met Goal 6:: Pt. to negotiate steps with reciprocal pattern with 1 HR with 0-1/10 pain in R knee Goal Time Frame: 4-6 Weeks Goal Progress: Progressing Anticipated Interventions Patient/Client Instruction: Educate patient on: Condition, Plan of Care, Risk Factors, Benefits of Fitness Program For the Purpose of:: To foster healthy habits, To improve decision making, To facilitate caregiver knowledge, To improve self management, To prevent re- injury, To improve ability to perform tasks related to life management, To i mprove tolerance to ADL's Therapeutic Exercise to Include: Strength training, Power training, Endurance training, Balance training, Postural training, Flexibilty training, Gait and locomotor training, Passive ROM, Active ROM For the Purpose of:: To decrease pain, To decrease swelling/inflammation, To increase ROM, To improve nutrient delivery to tissue, To increase oxygenation perfusion, To improve muscle performance and motor function, To improve ability to perform ADL's, To increase tolerance to activity/condition/position, To improve gait and locomotor functions, To improve health of tissue, To decrease soft tissue restriction, To increase flexibility/ROM Cryotherapy (ice pack, ice massage): Yes Vasopneumatic device: Yes For the Purpose of:: To decrease pain, To decrease swelling/inflammation, To increase ROM, To improve nutrient delivery to tissue Please do not hesitate to contact me at [phone] by phone or if you have questions or concerns regarding this new plan of care! Sincerely, Héctor Hoang DPT
--- NOTE | 2020-05-06 14:58 | HP.PTDCSUM ---
It has been my pleasure to treat LETICIA MOORE referred by Dr. Guanaco Smith DO, with the diagnosis of R TKA for a total of 29 visit(s). Discharge Date: 01/30/20 Please see the following information for a summary of their discharge status. Subjective: Pt. reports he is doing 90% better overall. HE compliatn without issues. R knee Pain Intensity (Out of 10): 0 % Improvement: 90 Objective/Function: Pt. has good ROM of his knee at this point in time 0-0-123deg. Pt. is walking better, but does have some mild swelling. I talked to him about this being normal upto 1 year at times. Pt. reports understanding. Pt. has good strength 5-/5 throughout. He is back to most activies. Pt. will be DC to HEP at this point in time. Goal 1:: Pt. to be I with HEP. Goal Progress: Goal Met Goal 2:: Pt. to have increased R knee ROM to 0-0-120deg. Goal Progress: Goal Met Goal 3:: Pt. to have increased RLE strength by 1/2 grade of all effected musculature. Goal Progress: Goal Met Goal 4:: Pt. to ambulate with out AD with normal gait pattern without increase in symptoms. Goal Progress: Goal Met Goal 5:: Pt. to sleep throughout the night without increase in symptoms. Goal Progress: Goal Met Goal 6:: Pt. to negotiate steps with reciprocal pattern with 1 HR with 0-1/10 pain in R knee Goal Progress: Goal Met Plan: DC to HEP. Discharge Comments: Pt. was treated for his TKA. Pt. has good ROM and good strength. He is back to most activities. He will be DC to HEP at this point in time. If there are questions or concerns regarding this patient's physical therapy, please feel free to call me at [phone]. Thank you for the referral of this patient. Sincerely, Héctor Hoang DPT
== END 2020-01-28 19:00 | disposition home or self-care (01) ==
LOC: PT 16:00
PROVIDERS: Family Provider Family Medicine; PCP Family Medicine; Visit Provider Orthopaedic Surgery
DX: Z96.651 Presence of right artificial knee joint (principal)
CPT/HCPCS: 97016; 97110; 97161; 97164; 97530

== ENCOUNTER 2020-10-19 12:30 | Day surgery (SDC) | payer MEDICARE, SELFPAY ==
--- NOTE | 2020-10-14 13:47 | EKG12_ITS ---
Test Reason : PRE OP Blood Pressure : / mmHG Vent. Rate : 083 BPM Atrial Rate : 083 BPM P-R Int : 176 ms QRS Dur : 134 ms QT Int : 396 ms P-R-T Axes : 073 -34 062 degrees QTc Int : 465 ms Normal sinus rhythm Left axis deviation Right bundle branch block Abnormal ECG Confirmed by DYLAN HOBSON, CHELSEA ([id number]), editorial director ZBIGNIEW ROBIN ([id number]) on 10/16/2020 11:24:00 AM Referred By: Ba Sarah Confirmed By:CHELSEA RICHARDSON MD
[2020-10-19] VITALS (7 sets, daily range): BP systolic 143–170; BP diastolic 91–105; PULSE 66–91; RESP 16–18; TEMP 36.9–37.6; O2SAT 97–100; BMI 24.0
--- NOTE | 2020-10-19 09:42 | HP_ITS ---
Intake Vital Signs 09/23/20 BP 138/86 H 09/23/20 Blood Pressure Location Rt brachial 09/23/20 Position Sitting 09/23/20 Respiration 18 09/23/20 Pulse 82 09/23/20 Pulse Source NIBP 09/23/20 Temp 98.1 F 09/23/20 Temp Source Temporal 09/23/20 Pulse Oximetry (%) 98 09/23/20 Oxygen Delivery Method room air Intake Visit Reasons: HERNIA Chief Complaint: RIH hx of left Steel Rod Buster Required: No Is patient in pain?: No Allergies No Known Allergies Allergy (Verified 09/23/20 09:20) Medications Cholecalciferol (Vitamin D3) [Vitamin D3] 2,000 unit PO DAILY 12/18/17 [History Confirmed 09/23/20] Flaxseed Oil [[place]-3 Flaxseed Oil] 750 mg PO DAILY 12/18/17 [History Confirmed 09/23/20] Lisinopril [Zestril] 10 mg PO QHS 12/18/17 [History Confirmed 09/23/20] Multivitamin [Multiple Vitamins] 1 ea PO DAILY 12/18/17 [History Confirmed 09/23/20] lisinopril 10 mg tablet 20 mg PO 0900 05/02/18 [History Confirmed 09/23/20] Aspirin E.C. [Ecotrin] 81 mg PO DAILY@0800 10/22/19 [History Confirmed 09/23/20] Calcium Carbonate/Vitamin D3 [Calcium 500-Vit D3 600 Caplet] 1 ea PO DAILY 10/22/19 [History Confirmed 09/23/20] Acyclovir [Zovirax] 400 mg PO PRN PRN 12/20/19 [History Confirmed 09/23/20] Acetaminophen [Tylenol Extra Strength] 1,000 mg PO Q6H PRN #100 tab 12/24/19 [Rx Confirmed 09/23/20] meloxicam 15 mg tablet 15 mg PO DAILY #30 tab 01/20/20 [Rx Confirmed 09/23/20] PFSH Medical History Arthritis (Acute) Hypertension (Chronic) Surgical History History of arthroscopy of both knees (Acute) History of hernia repair (Acute) History of left knee surgery (Acute) History of tonsillectomy (Acute) S/P inguinal hernia repair (Acute) Family History Father Arthritis Hypertension Skin cancer Brother Arthritis Hypertension Skin cancer Mother Breast cancer Hypertension Social History (Updated 09/23/20 @ 09:[address] Marcelino Joshua MD) Smoking Status: Former smoker alcohol intake: current alcohol intake frequency: a few times a month substance use type: does not use HPI HPI HPI: LETICIA MOORE, is a 69 M who presents to the office today for HPI HPI Surgical H&P: Yes HPI: LETICIA MOORE, is a 69 M who presents to the office today for right groin bulging. The patient reports that for the last few months he has been experiencing bulging in the right groin. He says that it does go away with lying down. He reports no issues on the left side which has been previously repaired. Patient does not report any radiation of pain or nausea or vomiting. No fevers or chills or shortness of breath. ROS General General: Yes weight change; no appetite, fatigue, colon cancer, breast cancer or weakness HEENT HEENT: No difficulty swallowing, eye injury, eye surgery, swollen glands or hoarseness Endo Endocrine: No thyroid disease, diabetes mellitus, thyroid cancer, Hair loss, heat intolerance or cold intolerance Skin Skin: No rash or changing moles Breast Breast: No left breast lump, right breast lump, nipple discharge, breast pain, abnormal mammogram, abnormal US or breast enlargement Musc Musculoskeletal: Yes arthritis and rheumatoid arthritis; no back problems, gout or joint pain Cardio Cardiovascular: Yes high blood pressure; no murmur, pacemaker, heart disease, atrial fibrillation, heart attack, heart stent, palpitations, shortness of breat with exertion or chest pain Psych Psychiatric: No depression, anxiety or hearing voices Resp Respiratory: No shortness of breath, No sleep apnea, No cough, No COPD, No asthma, No emphysema, No wheezing Gastro Gastrointestinal: Yes abdominal pain, No nausea or vomiting, No diarrhea, No constipation, No blood in stool, No acid reflux, No hemorrhoids, No ulcers, No gallbladder problem, No black,tarry stools Christian Hematologic: No blood thinners, No blood disorders, No bleeding, No anemia, No blood clots Neuro Neurologic: No weakness Exam Const General: cooperative Orientation: alert, oriented x3 HENMT Head: normal to inspection Ears: hearing grossly normal bilaterally Eyes General: appearance normal, both eyes and all related structures Visual Dumont: normal visual dumont by confrontation Neck Neck: normal visual inspection Chest Chest palpation & inspection: normal inspection of the chest Breast Palpation: No nipple discharge Resp Effort & Inspection: normal respiratory effort Auscultation: clear to auscultation bilaterally Cardio Rate: regular rate Rhythm: regular rhythm Heart Sounds: no murmurs GI Inspection: non-distended Palpation: soft, hernia indirect inguinal on the right, nontender Musc Cervical Spine: normal cervical lordosis, cervical ROM normal Skin General: no rashes or lesions noted Neuro General: alert, oriented x3 Cranial Nerves: CN's II-XI intact bilaterally Cognition: normal cognition Extrem General: normal to inspection, full ROM Psych Appearance: grossly normal Affect: normal affect Assessment & Plan Problems 1. Right inguinal hernia K40.90 Plan The patient has a reducible hernia of the right inguinal region. I discussed repair with him. The patient has a history of robotic left inguinal hernia repair and was happy with that outcome and would like a laparoscopic robotic assisted left inguinal hernia repair with mesh. I discussed the procedure as well as the risks including not limited to bleeding, infection, chronic groin pain, spermatic cord injury. The patient understands the risks and is well to proceed. We discussed the current risks associated with COVID-19. While it is understood that there is a community spread of COVID-19, the risk of rajwinder COVID-19 while at [facility] ([facility]) is very low; however, the risk cannot be completely mitigated because of the community spread of the disease. We discussed in detail the risk of exposure to and/or potential harm posed by the COVID-19 virus with having a surgery/procedure at this time versus the risk of delaying the surgery/procedure. It is not possible to know either the risk of delaying the surgery or procedure or chance of getting an infection with perfect accuracy, but a joint decision was made to proceed at this time with the scheduled surgery/procedure as indicated on the consent form. Patient was notified that we will need to comply with any screening or testing [facility] wishes to perform or that surgery may be delayed for any positive results. Marcelino Joshua MD Pager: [facility] [address] [place] [address], [address] [place] [address] Office: Coding Level of Care Code Off vis,est,level 4 Diagnoses Right inguinal hernia K40.90 I have re-examined the patient. There are no clinical changes since date of exam.
[2020-10-19] MEDS: Lactated Ringers 1,000 ML 100 ML IV ×2 (13:33→15:55)
[2020-10-19] MEDS: Cefazolin 2 GM in 0.9% Normal Saline 100 ML IV (14:54)
[2020-10-19] MEDS: Bupivacaine Mpf 0.5% 30 ML VIAL (15:30)
--- NOTE | 2020-10-19 16:08 | PCM.OPRPT ---
Problem List (1) Recurrent right inguinal hernia Status: Acute Report of Operation Date of Procedure: 10/19/20 Pre-Operative Diagnosis: Recurrent right inguinal hernia Post-Operative Diagnosis: Same Surgery/Procedure Performed:: Robotic assisted laparoscopic right inguinal hernia repair with mesh Specimen's removed: None Description of Procedure: Patient was brought back to the op room and general anesthesia was induced. The abdomen was prepped and draped in usual sterile fashion. His prior incision was marked and an incision was made in the skin at the same site. Hemostats were used to elevate the fascia and the fascia was incised. A port was placed into the abdomen and the abdomen was insufflated 15 mmHg. The camera was placed into the abdomen and the abdomen was inspected. The prior left hernia repair appeared intact. There was an indirect hernia on the right side. Under direct visualization a right sided 8 mm port was placed as well as a left-sided 8 millimeter port. Patient was placed in the steep Trendelenburg position and the robot was docked. The cautery scissors were used to make an incision in the peritoneum and this dissection was carried distally until the hernia sac was encountered and reduced. Next progrip mesh was placed into the right groin and unfolded covering the hernia defect. The peritoneum was reapproximated using running 3-0V lock suture. The peritoneum completely covered the mesh. The pneumoperitoneum was released and the ports were removed and the robot was undocked. The fascia at the midline incision was closed with a [id number] 0 Vicryl suture. Next the skin incisions were anesthetized and closed with interrupted 4-0 Monocryl suture as well as Steri-Strips and bandages. The scrotum was checked at the end the case and contain both testicles. The patient was awoken and taken to PACU in stable condition. Patient tolerated procedure well. Grafts/Implants Used: Progrip mesh - Admit VTE Documentation VTE Mechan Device Prophylaxis: SCD's
--- NOTE | 2020-10-19 16:31 | PCM.DC.HER ---
Discharge Diet: Light diet - advance as tolerated Discharge Activity: Return to Normal Activity, May Not Drive - for 2-3 days or while taking narcotic pain meds., May Shower - with the bandage in place 1-2 days after surgery. Lifting Restrictions: 20 pounds for 4 weeks. Additional Activity Instructions:: Climbing stairs is fine, walking is encouraged. Sitting in bed may be uncomfortable. Sitting up using your lateral muscles (sitting up sideways) is usually more comfortable. Do not drive, work heavy equipment of sign legal documents for 24 hours. If your hernia repair was an ingunial repair, you may have scrotal swelling, an ice pack and/or athletic support can provide more comfort. Pain medications may cause nausea, you should typically eat light foods as you take your pain medications. Pain medications may also cause constipation. If you have difficulty with this, discuss with your doctor. Call your doctor if your incision/area has: Continuous Slow Oozing, Sudden Increased Bleeding, Increased Pain/ Swelling, Increased Redness, Foul Smelling Discharge Call your doctor if you observe: Fever of 101 or Higher Suture Line Care: Avoid Pulling/Pushing, Avoid Pinching/Bending Change Dressing in (Days):: 3 - Leave steri-strips for 1 week. May protect with a guaze bandaid. Cleanse incision/area with: Keep Dressing Clean & Dry Allergies/Adverse Reactions: Allergies No Known Allergies Allergy (Verified 10/19/20 12:53) Medications to take at Discharge Cholecalciferol (Vitamin D3) [Vitamin D3] 2,000 unit PO DAILY 12/18/17 Flaxseed Oil [[place]-3 Flaxseed Oil] 750 mg PO DAILY 12/18/17 Lisinopril [Zestril] 10 mg PO QHS 12/18/17 Multivitamin [Multiple Vitamins] 1 ea PO DAILY 12/18/17 lisinopril 10 mg tablet 20 mg PO 0900 05/02/18 Aspirin E.C. [Ecotrin] 81 mg PO DAILY@0800 10/22/19 Calcium Carbonate/Vitamin D3 [Calcium 500-Vit D3 600 Caplet] 1 ea PO DAILY 10/22/19 Acyclovir [Zovirax] 400 mg PO PRN PRN 12/20/19 Acetaminophen [Tylenol Extra Strength] 1,000 mg PO Q6H PRN #100 tab 12/24/19 Oxycodone HCl/Acetaminophen [Percocet 5-325 mg Tablet] 1 - 2 tab PO Q6H PRN PRN 5 Days #20 tab 10/19/20 The following prescriptions were given: Oxycodone HCl/Acetaminophen [Percocet 5-325 mg Tablet] 1 - 2 tab PO Q6H PRN PRN 5 Days #20 tab PRN Reason: Pain Score 4-10/10 Transmission Status: Received by [facility] Primary Care Physician: Ba Sarah MD [Primary Care Provider] - Test Results: Test results from this visit will be discussed in further detail at your follow-up appointment, if applicable. Please Follow Up With: Marcelino Joshua MD When: Please call to schedule 2 week follow up appointment. [phone]
[2020-10-19] MEDS: oxyCODONE 5 MG Tablet PO (17:30)
[2020-10-19] MEDS: Acetaminophen 325 MG Tablet PO (17:30)
== END 2020-10-19 18:54 | disposition home or self-care (01) ==
LOC: SDC 12:30 → AC 12:31
PROVIDERS: PCP Family Medicine; Referring Provider Family Medicine; Visit Provider Surgery
PROC: (CPT 49651; principal; 2020-10-19 14:10)
DX: K40.91 Unilateral inguinal hernia, without obstruction or gangrene, recurrent (principal); I10 Essential (primary) hypertension; M19.90 Unspecified osteoarthritis, unspecified site; Z20.828 Contact with and (suspected) exposure to other viral communicable diseases; Z79.899 Other long term (current) drug therapy; Z87.891 Personal history of nicotine dependence
CPT/HCPCS: 49651; 87426; 93005; C9803; J7120; J2405

== ENCOUNTER → 2021-08-18 10:52 | Outpatient (CLI) | payer MEDICARE, SELFPAY ==
--- NOTE | 2021-08-18 10:58 | ECHOD_ITS ---
Version 2 Reason For Study: Arrhythmia Procedure This was a 2D Doppler, Color Flow transthoracic echocardiogram. Exam performed in department. Left Ventricle Normal LV size. Left ventricular systolic function is normal. The estimated ejection fraction is 60 %. Stage 1 diastolic dysfunction. No regional wall motion abnormalities noted. Right Ventricle Normal RV size. Normal systolic function. Atria Normal left atrium. Normal right atrium. Mitral Valve Normal mitral valve. Mild (1+) eccentric mitral valve insufficiency. Tricuspid Valve Normal tricuspid valve. Aortic Valve Normal aortic valve. Pulmonic Valve Normal pulmonic valve. Great Vessels Normal aortic root. The pulmonary artery is normal size. Normal inferior vena cava. Pericardium/Pleural No pericardial effusion. MMode/2D Measurements & Calculations LVIDd: 4.5 cm IVSd: 0.79 cm Ao root diam: 3.6 cm LVIDs: 2.6 cm LVPWd: 0.88 cm LA dimension: 3.1 cm RVDd: 3.7 cm FS: 41.7 % LAV(MOD-bp): 35.2 ml LA A4 area: 13.1 cm2 RA A4 area: 13.0 cm2 LAV(MOD-bp) Indexed: 18.1 ml/m2 LAV(MOD-sp2): 29.9 ml LAV(MOD-sp4): 32.4 ml Time Measurements MV dec time: 0.27 sec Doppler Measurements & Calculations MV E max scot: 54.5 cm/sec Lat Peak E' Scot: 7.2 cm/sec Med Peak E' Scot: 6.4 cm/sec MV A max scot: 62.6 cm/sec E/E' lat: 7.6 E/E' med: 8.5 MV E/A: 0.87 MV V2 max: 67.7 cm/sec MV P1/2t max scot: 60.0 cm/sec Ao V2 max: 104.8 cm/sec MV max P.8 mmHg MV P1/2t: 84.6 msec Ao max P.4 mmHg MV V2 mean: 38.4 cm/sec MV dec slope: 207.6 cm/sec2 MV mean P.69 mmHg MVA(P1/2t): 2.6 cm2 MV V2 VTI: 18.3 cm LV V1 max: 74.2 cm/sec PA V2 max: 98.2 cm/sec LV V1 max P.2 mmHg ECHO/Echo Complete Interpretation Summary Normal LV size. Left ventricular systolic function is normal. The estimated ejection fraction is 60 %. Mild (1+) eccentric mitral valve insufficiency. Stage 1 diastolic dysfunction. Ordering Physician: Marv Chapa Referring Physician: Khoa Sarah Performed By: Gaetano Colby RCS
== END ==
PROVIDERS: PCP Family Medicine; Referring Provider Internal Medicine Cardiovascular Disease; Visit Provider Internal Medicine Cardiovascular Disease
DX: R00.2 Palpitations (principal)
CPT/HCPCS: 93306

== ENCOUNTER → 2025-09-30 | Outpatient (CLI) | payer MEDICARE, SELFPAY ==
[2025-09-30 14:59] LABS: PTHIN 66 pg/mL (11-61)
[2025-09-30 15:16] LABS: Vitamin D,25 Hydroxy 39.1 ng/mL (30-100)
== END | disposition home or self-care (01) ==
LOC: POLAB3 14:17
PROVIDERS: PCP Family Medicine; Visit Provider Internal Medicine Nephrology
DX: N18.31 Chronic kidney disease, stage 3a (principal); E55.9 Vitamin D deficiency, unspecified
CPT/HCPCS: 36415; 82306; 83970